=== PATIENT | male | born 1960 | race Caucasian/White ===

== ENCOUNTER 2018-04-17 10:12 | Inpatient (IN) | payer OTHER ==
[2018-04-13 08:49] VITALS: BMI 23.6
[2018-04-17] MEDS ORDERED: HEPARIN NA (PORCINE) 5,000 UNITS/ML 1ML VIAL ONE (12:23)
[2018-04-17] MEDS ORDERED: THROMBIN (BOVINE) 5,000 UNIT VIAL TP ONE ×4 (12:24→16:17)
[2018-04-17] MEDS ORDERED: BUPIVACAINE LIPOSOME/PF (EXPAREL) 266 MG/20 ML VIAL NR ONE ×3 (12:45→17:20)
[2018-04-17] MEDS ORDERED: MIDAZOLAM HCL 2 MG/2 ML SINGLE DOSE VIAL ONE (12:50)
[2018-04-17] MEDS ORDERED: PROPOFOL 20 ML ONE ×14 (12:51→17:55)
[2018-04-17] MEDS ORDERED: LIDOCAINE HCL/PF 2% SDV 5ML VIAL ONE ×2 (13:13→18:04)
[2018-04-17] MEDS ORDERED: fentaNYL CITRATE 250 MCG/5 ML VIAL ONE ×2 (13:13→14:00)
[2018-04-17] MEDS ORDERED: ROCURONIUM BROMIDE 50 MG/5 ML VIAL ONE (13:14)
[2018-04-17] MEDS ORDERED: ceFAZolin SODIUM 1 GM VIAL ONE ×2 (13:30→17:09)
[2018-04-17] MEDS ORDERED: DEXAMETHASONE SOD PHOSPHATE 4 MG/1 ML VIAL ONE (13:32)
[2018-04-17] MEDS ORDERED: TRANEXAMIC ACID 1000 MG/10 ML VIAL ONE (13:36)
[2018-04-17] MEDS ORDERED: ceFAZolin 2 GRAM PREMIX BAG IVPB ONE (13:38)
[2018-04-17] MEDS ORDERED: BUPIVACAINE HCL/PF 0.25% (2.5MG/ML) 10 ML VIAL IJ ONE (14:36)
[2018-04-17] MEDS ORDERED: METOPROLOL TARTRATE 5 MG/5 ML VIAL ONE (14:43)
--- NOTE | 2018-04-17 17:23 | PN ---
Progress Note (short form) - Note Progress Note: 57M s/p KHADRA; revision laminectomy L3-L4; laminectomy L4, L5, S1; L4-L5, L5-S1 PLIF; partial corpectomies L5, S1; SPO L3-L4; L3-S1 PISF POD #0. -Admit to ICU post-op. -Pain control: per anaesthesia team; No NSAID's. -DVT PPx: - Mechanical only: BIANKA's, SCD's. -Incentive spirometry. -PT/OT/Rehab, OOB. -WBAT B/L LE. -q4h B/L LE NV checks. -Post-op antibiotics x 2 doses. -NPO until flatus. -f/u AM labs. -f/u drain output. -d/c Geronimo catheter when ambulating. -Care per ICU & medical hospitalist team. -Discharge planning: f[facility]; call for appointment; . -Will follow. Clovis Pickering MD (Orthopaedic Surgery).
--- NOTE | 2018-04-17 17:25 | OP ---
Operative Note - Note: Operative Date: 04/17/18 Pre-Operative Diagnosis: Lumbar spinal stenosis. Adjacent level disease Operation: 1. KHADRA. 2. Revision laminectomy L3-L4. 3. Laminectomy L4, L5, S1. 4. L4-L5, L5-S1 PLIF. 5. L5, S1 partial corpectomies. 6. L3-L4 SPO. 7. L3-S1 PISF. 8. Bone marrow aspiration. 9. Bone autograft. 10. Bone allograft Post-Operative Diagnosis: Same as Pre-op Surgeon: Clovis Pickering Sock Lining Examiner: Polo Pickering Anesthesiologist/SIGNAL OPERATOR TECHNICAL: Nick Johnston Anesthesia: General Specimens Removed: Hardware. L4-L5, L5-S1 disc Estimated Blood Loss (mls): 900 Drains & Tubes with Location: 1 x superficial HemoVac Blood Volume Replaced (mls): 375 (Cell Saver) Fluid Volume Replaced (mls): 3,400 (Crystalloid) Operative Report Dictated: Yes
[2018-04-17] MEDS ORDERED: BENZOIN TINCTURE SWABSTICK TP ONE (18:45)
[2018-04-17] MEDS ORDERED: ONDANSETRON 4 MG/2 ML VIAL IVPUSH PRN ×2 (19:14→21:50)
[2018-04-17] MEDS ORDERED: ACETAMINOPHEN 1000 MG/100 ML VIAL (NON FORMULARY) IVPB ONE (19:14)
[2018-04-17] MEDS ORDERED: LACTATED RINGERS SOLUTION 1,000 ML IV SCH (19:15)
--- NOTE | 2018-04-17 21:09 | HP ---
CHIEF COMPLAINT: s/p laminectomies PCP: HISTORY OF PRESENT ILLNESS: Patient is a 57 y/ male with a history of HLD, back surgery 9 years ago, and cardiac stent 5 years ago who presents POD 0 for removal of hardware and revision laminectomy L3-L4, laminectomies L3, L4, L5, partial corpectomies L5, S1, and L4-S1 PLISF. Patient reports he did not have any specific trauma that caused his back problems. He needed revision after his first surgery for L3-L4, and that was part of this current surgery. He has been mobile and able to deal with the pain up until about a year ago when he became less active. He reports he has had numbness, tingling, and pins and needles down his right leg. He did not have any weakness in his leg. Patient's only current complaint is that he needs to urinate, despite having catheter he feels he cannot go. He reports that he had some trouble urinating after his last surgery. After removal of his last catheter he had to have another one placed. He denies any current back pain , chest pain, headache, nausea, or shortness of breath. ER course was notable for: (1) QTC: 414 (2) (3) Recent Travel: PAST MEDICAL HISTORY: HLD PAST SURGICAL HISTORY: back surgery 9 years ago, stent placement 5 year ago, clavicle fx at age 11, tonsillectomy Social History: Smoking: denies Alcohol: Drugs: Family History: Allergies Sulfa (Sulfonamide Antibiotics) Allergy (Verified 04/14/18 12:54) "hives,rash" HOME MEDICATIONS: Home Medications Medication Instructions Recorded Aspirin [ASA -] 325 mg PO DAILY 04/13/18 Atorvastatin Ca [Lipitor] 20 mg PO HS 04/13/18 [place]-3 Fatty Acids/Fish Oil [Fish 1 each PO DAILY 04/13/18 Oil 1,000 mg Capsule] clonazePAM [Klonopin -] 0.25 mg PO PRN PRN 04/13/18 Multivitamin/Iron/Folic Acid 1 each PO DAILY 04/17/18 [Centrum Adults Tablet] REVIEW OF SYSTEMS CONSTITUTIONAL: Absent: fever, chills, diaphoresis, generalized weakness, malaise, loss of appetite, weight change HEENT: Absent: rhinorrhea, nasal congestion, throat pain, throat swelling, difficulty swallowing, mouth swelling, ear pain, eye pain, visual changes CARDIOVASCULAR: Absent: chest pain, syncope, palpitations, irregular heart rate, lightheadedness , peripheral edema RESPIRATORY: Absent: cough, shortness of breath, dyspnea with exertion, orthopnea, wheezing, stridor, hemoptysis GASTROINTESTINAL: Absent: abdominal pain, abdominal distension, nausea, vomiting, diarrhea, constipation, melena, hematochezia GENITOURINARY: hesitancy Absent: dysuria, frequency, urgency, hematuria, flank pain, genital pain MUSCULOSKELETAL: Absent: myalgia, arthralgia, joint swelling, back pain, neck pain SKIN: Absent: rash, itching, pallor HEMATOLOGIC/IMMUNOLOGIC: Absent: easy bleeding, easy bruising, lymphadenopathy, frequent infections ENDOCRINE: Absent: unexplained weight gain, unexplained weight loss, heat intolerance, cold intolerance NEUROLOGIC: Absent: headache, focal weakness or paresthesias, dizziness, unsteady gait, seizure, mental status changes, bladder or bowel incontinence PSYCHIATRIC: Absent: anxiety, depression, suicidal or homicidal ideation, hallucinations. PHYSICAL EXAMINATION Vital Signs - 24 hr Vital Signs Temperature 98.3 F 04/17/18 19:02 Pulse Rate 66 04/17/18 20:15 Respiratory Rate 20 04/17/18 20:15 Blood Pressure 98/63 04/17/18 20:15 O2 Sat by Pulse Oximetry (%) 100 04/17/18 20:15 GENERAL: Awake, alert, and fully oriented, in no acute distress. HEAD: Normal with no signs of trauma. EYES: Pupils equal, round and reactive to light, extraocular movements intact EARS, NOSE, THROAT: . Moist mucous membranes. LUNGS: Breath sounds equal, clear to auscultation bilaterally. No wheezes, and no crackles. HEART: Regular rate and rhythm, normal S1 and S2 without murmur, rub or gallop. ABDOMEN: Soft, nontender, not distended, normoactive bowel sounds, no guarding, no rebound. no bladder distension MUSCULOSKELETAL: dressing over lower lumbar spine up to lower thoracic spine UPPER EXTREMITIES: 2+ pulses, warm, well-perfused. muscle strength 5/5, sensation intact bilaterally LOWER EXTREMITIES: 2+ pulses, warm, well-perfused. diminished soft tough sensation on RLE, deep sensation intact, LLE sensation intact, muscle strength deffere PSYCHIATRIC: Cooperative. Good eye contact. Appropriate mood and affect. SKIN: Warm, dry, normal turgor, no rashes or lesions noted, Laboratory Results - last 24 hr 04/17/18 10:25 Blood Type O POSITIVE Antibody Screen Negative ASSESSMENT/PLAN: Patient is a 57 y/ male with a history of HLD, back surgery 9 years ago, and cardiac stent 5 years ago who presents POD 0 for laminectomies L3, L4, L5, and S1 and L4-S1 PLISF. #POD 0 laminectomies L3, L4, L5, and S1 and L4-S1 PLISF - Oxycodone 10 mg BID - Oxycodone 5mg for pain 3-6, 10 mg for pain 6-10 prn q3h - pain well controlled - encourage incentive spirometer use - monitor urine output, currently draining non hematuric urine - neuro checks q shift - f/u Dr. Pickering - f/u physical therapy - NPO #Cardiac HX - hold aspirin 325 mg for now, restart per ortho - Atorvastatin 20 mg daily - hold metoprolol until dose confirmed - QTC 414 #Anxiety - Clonazepam .25 mg prn Dispo: med rec, f/u per Dr. Pickering Visit type - Emergency Visit Emergency Visit: No - New Patient This patient is new to me today: Yes Date on this admission: 04/18/18 - Critical Care Critical Care patient: No
[2018-04-17] MEDS: LACTATED RINGERS SOLUTION 1,000 ML IV SCH (22:00)
[2018-04-17] MEDS ORDERED: LIDOCAINE HCL 5% TOP OINTMENT 50 GM TUBE TP ONE (23:31)
[2018-04-17] MEDS: clonazePAM 0.5 MG TABLET PO PRN (23:34)
[2018-04-17] MEDS: CHLORHEXIDINE GLUCONATE 4% CLEANSER FOR DECOLONIZATION TP SCH (23:36)
[2018-04-17] MEDS: MUPIROCIN 2% TOPICAL OINTMENT FOR DECOLONIZATION NS SCH (23:37)
--- NOTE | 2018-04-17 23:54 | PN ---
Teaching Attending Note Name of Resident: Kathy Hairston ATTENDING PHYSICIAN STATEMENT I saw and evaluated the patient. I reviewed the resident's note and discussed the case with the resident. I agree with the resident's findings and plan as documented. SUBJECTIVE: Patient is a 57 y/o CM with a PMH of CAD s/p PCI, HLD, chronic back pain s/p sgy ~9 years ago, presents to the IM service as a consultation from Dr. santos for post operative management. He is doing well and is hemodynamically stable and afebrile with no new complaints. He is on PRN oxycodone and his pain is well managed with this. Has not yet had a BM or flatus. Continues to have intermittent numbness and tingling in his R leg but can feel my touch; not rapidly progressing or associated with new weakness. He has some leg weakness associated with pain postoperatively but it is not rapidly changing and he does appear stable from a neurovasc. standpoint. He had the surgery done due to the progressive nature of his back pain. He is POD #0 for removal of hardware and revision laminectomy L3-L4, laminectomies L3, L4, L5, partial corpectomies L5, S1, and L4-S1 PLISF. There are still some discrepansies with the doses of his medication. Unclear why he is written as being on high dose ASA. He notes as I am leaving the room that he feels like his bladder is not emptying; caldwell in, though, and draining clear yellow urine. PMH: HLD, CAD, Chronic back pain PSH: PCI, old back procedure ~9 years ago FH: asked and noncontributory Social: No EtOH or drug abuse reported OBJECTIVE: VSS, labs pending Resting in bed, no distress, conversational and pleasant RRR s1/2 no mgr NT ND +BS no HSM Lungs CTAB with sym exp CN 2-12 grossly intact, moves all 4 extremities, 3-4/5 LE weakness especially pronounced at hip joint with all sensation in tact but somewhat diminished in the lateral right thigh. Normal affect, appropriate behavior ASSESSMENT AND PLAN: 1) Postoperative management -Resume asa per ortho; not clear on why documented as 325; if no compelling reason for high dose would resume at 81mg -Mobilization with PT/OT -Neurovascular checks -DVT px per ortho -Pain control and bowel reg 2) H/O CAD in [place] artery -Elucidate doses of ASA (resume when appropriate with primary service) and BB ( can start when we have the dose). Is also on statin. No recent stents so doesn 't need Plavix. 3) HLD -Continue statin 4) Chronic Back Pain -Continue with postoperative pain management; elucidate home requirements as he starts mobilization DVT px reviewed No GI px indicated Full Code
--- NOTE | 2018-04-18 00:33 | CONSULT ---
Consultation: REQUESTING PROVIDER: Dr. Pickering CONSULT REQUEST: We have been asked to medically evaluate this patient for s/p laminectomy. HISTORY OF PRESENT ILLNESS: Patient is a 57 year old male with a PMHx of CAD s/p stent placement, HLD, chronic back pain who presented to ICU for post operative management s/p removal of hardware and revision laminectomy L3-L4, laminectomies L3, L4, L5, partial corpectomies L5, S1, and L4-S1 PLISF. Patient reports having his first laminectomy 9 years ago due to the back pain. However, over the last few years patient reports having continuous back pain that became debilitating in the last year. Patient states he became less active and started having numbness, weakness, and tingling of his legs, which prompted the surgery. Patient currently afebrile and hemodynamically stable. Continues to report right leg numbness after the surgery but pain is controlled with PRN oxycodone. Denies having any bowel movements or flatus. Patient does however report discomfort around the caldwell site and that he is unable to urinate. However, caldwell placed and patient is draining clear yellow urine. Otherwise, patient denies any fever, chills, nausea, vomiting, abdominal pain, chest pain, palpitations, shortness of breath, acute vision changes, headaches. PMHx: CAD s/p Stent, HLD, chronic back pain PSHx: Laminectomy (9 years ago), Stent placement (2012), clavicle fx at age 11, tonsillectomy Social: Denies alcohol, drugs, smoking Family: Denies Allergies: Sulfa (Sulfonamide Antibiotics) Allergy (Verified 04/14/18 12:54) "hives,rash" REVIEW OF SYSTEMS: CONSTITUTIONAL: Absent: fever, chills, diaphoresis, generalized weakness, malaise, loss of appetite, weight change HEENT: Absent: rhinorrhea, nasal congestion, throat pain, throat swelling, difficulty swallowing, mouth swelling, ear pain, eye pain, visual changes CARDIOVASCULAR: Absent: chest pain, syncope, palpitations, irregular heart rate, lightheadedness , peripheral edema RESPIRATORY: Absent: cough, shortness of breath, dyspnea with exertion, orthopnea, wheezing, stridor, hemoptysis GASTROINTESTINAL: Absent: abdominal pain, abdominal distension, nausea, vomiting, diarrhea, constipation, melena, hematochezia GENITOURINARY: Absent: dysuria, frequency, urgency, hesitancy, hematuria, flank pain, genital pain MUSCULOSKELETAL: Absent: myalgia, arthralgia, joint swelling, back pain, neck pain SKIN: Absent: rash, itching, pallor HEMATOLOGIC/IMMUNOLOGIC: Absent: easy bleeding, easy bruising, lymphadenopathy, frequent infections ENDOCRINE: Absent: unexplained weight gain, unexplained weight loss, heat intolerance, cold intolerance NEUROLOGIC: focal weakness or paresthesias Absent: headache, dizziness, unsteady gait, seizure, mental status changes, bladder or bowel incontinence PSYCHIATRIC: Absent: anxiety, depression, suicidal or homicidal ideation, hallucinations. PHYSICAL EXAMINATION Vital Signs - 24 hr 04/17/18 04/17/18 04/17/18 10:35 19:02 19:15 Temperature 97.9 F 98.3 F Pulse Rate 57 L 59 L 60 Respiratory 16 12 10 Rate Blood Pressure 107/68 98/58 L 92/53 L O2 Sat by Pulse 96 100 100 Oximetry (%) 04/17/18 04/17/18 04/17/18 19:30 19:45 20:00 Temperature Pulse Rate 67 61 66 Respiratory 15 13 18 Rate Blood Pressure 98/50 L 95/54 L 96/65 O2 Sat by Pulse 100 100 100 Oximetry (%) 04/17/18 04/17/18 04/17/18 20:15 20:30 20:45 Temperature Pulse Rate 66 66 63 Respiratory 20 17 17 Rate Blood Pressure 98/63 115/60 96/69 O2 Sat by Pulse 100 100 100 Oximetry (%) 04/17/18 04/17/18 04/17/18 21:00 21:15 21:30 Temperature Pulse Rate 60 60 62 Respiratory 18 15 10 Rate Blood Pressure 98/58 L 111/56 L 110/52 L O2 Sat by Pulse 100 100 100 Oximetry (%) 04/17/18 04/17/18 21:45 22:00 Temperature 98.1 F Pulse Rate 64 60 Respiratory 10 16 Rate Blood Pressure 111/58 L 110/50 L O2 Sat by Pulse 100 Oximetry (%) GENERAL: Awake, alert, and fully oriented, in no acute distress. HEAD: Normal with no signs of trauma. EYES: Pupils equal, round and reactive to light, extraocular movements intact, sclera anicteric, conjunctiva clear. No lid lag. EARS, NOSE, THROAT: Oropharynx clear without exudates. Moist mucous membranes. NECK: Normal range of motion, supple without lymphadenopathy, JVD, or masses. LUNGS: Breath sounds equal, clear to auscultation bilaterally. No wheezes, and no crackles. No accessory muscle use. HEART: Regular rate and rhythm, normal S1 and S2 without murmur, rub or gallop. ABDOMEN: Soft, nontender, not distended, normoactive bowel sounds, no guarding, no rebound, no masses. No hepatomegaly or splenomegaly. : Caldwell placed draining clear yellow urine MUSCULOSKELETAL: No CVA tenderness. UPPER EXTREMITIES: 2+ pulses, warm, well-perfused. No cyanosis. No clubbing. Cap refill <2 seconds. No peripheral edema. LOWER EXTREMITIES: SCD's in bilateral legs. 2+ pulses, warm, well-perfused. No calf tenderness. No peripheral edema. NEUROLOGICAL: Cranial nerves II-XII intact. Normal speech. Motor strength 3-4/ 5 bilaterally with sensation intact. PSYCHIATRIC: Cooperative. Good eye contact. Appropriate mood and affect. SKIN: Warm, dry, normal turgor, no rashes or lesions noted. Laboratory Results - last 24 hr 04/17/18 10:25 Blood Type O POSITIVE Antibody Screen Negative Active Medications Generic Name Dose Route Start Last Admin Trade Name Freq PRN Reason Stop Dose Admin Acetaminophen 1,000 mg 04/18/18 03:30 Ofirmev Injection - IVPB 04/18/18 19:31 Q8H [facility] Atorvastatin Calcium 20 mg 04/18/18 22:00 Lipitor - PO HS LOTTIE Cefazolin Sodium/Dextrose 2 gm 04/18/18 01:30 Ancef 2 Gm Premixed Ivpb - IVPB 04/18/18 09:31 Q8H [facility] Chlorhexidine Gluconate 1 applic 04/17/18 22:00 04/17/18 23:36 Hibiclens For Decolonization - TP 1 applic HS LOTTIE Administration Clonazepam 0.25 mg 04/17/18 22:02 04/17/18 23:34 Klonopin - PO 0.25 mg DAILY PRN Administration ANXIETY Lactated Ringer's 1,000 mls @ 100 mls/hr 04/17/18 22:00 04/17/18 22:00 Lactated Ringers Solution IV 0 mls ASDIR LOTTIE Administration Mupirocin 1 applic 04/17/18 22:00 04/17/18 23:37 Bactroban Ointment (For Decolonization) - NS 04/22/18 21:59 1 applic BID LOTTIE Administration Ondansetron HCl 4 mg 04/17/18 21:50 Zofran Injection IVPUSH Q6H PRN NAUSEA AND/OR VOMITING Oxycodone HCl 5 mg 04/17/18 19:14 Roxicodone - PO Q3H PRN PAIN LEVEL 1-5 Oxycodone HCl 10 mg 04/17/18 19:14 Roxicodone - PO Q3H PRN PAIN LEVEL 6-10 Oxycodone HCl 10 mg 04/18/18 10:00 Oxycontin - PO 04/20/18 19:15 BID LOTTIE ASSESSMENT/PLAN: Patient is a 57 year old male who presented for Post operative management s/p laminectomies L3, L4, L5, and S1 and L4-S1 PLISF. Patient admitted to ICU for further monitoring and management. Neurology #S/P Laminectomies L3, L4, L5, and S1 and L4-S1 PLISF -POD #0 -Continue pain management with Oxycodone 10mg BID with Oxycodone 5mg PRN Q3H -Will need bowel regimen due to pain medications -Continue IV tylenol for pain -Continue IV fluids with LR @100mls/hr -Continue to monitor Urine ouput -Continue Incentive spirometer -Neurochecks qshift -PT ordered -Continue NPO -Continue DVT prophylaxis Cardiology #CAD s/p Stent -Hold ASA 325mg, as per ortho -Continue home medication Metoprolol once primary team confirms dosage #HLD -Continue home medication Atorvastatin 20mg HS Psychology #Anxiety -Continue Clonazepam 0.25mg PRN F/E/N -IV LR @100mls/hr -labs ordered -NPO Prophylaxis -High risk. SCD's for DVT -No GI indicated Disposition -Full code -Continue post op management in ICU We will continue to follow the patient. Thank you for this consultative opportunity. Joceline Martinez [id number] Visit type - Emergency Visit Emergency Visit: Yes ED Registration Date: 04/17/18 Care time: The patient presented to the Emergency Department on the above date and was hospitalized for further evaluation of their emergent condition. - New Patient This patient is new to me today: Yes Date on this admission: 04/17/18 - Critical Care Critical Care patient: Yes Total Critical Care Time (in minutes): 45 Critical Care Statement: The care of this patient involved high complexity decision making to prevent further life threatening deterioration of the patient 's condition and/or to evaluate & treat vital organ system(s) failure or risk of failure.
[2018-04-18] MEDS: ceFAZolin 2 GRAM PREMIX BAG IVPB SCH ×2 (02:09→09:39)
[2018-04-18] MEDS: ACETAMINOPHEN 1000 MG/100 ML VIAL (NON FORMULARY) IVPB SCH ×3 (02:36→19:01)
[2018-04-18] MEDS: oxyCODONE HCL 5 MG TABLET PO PRN ×4 (05:50→23:10)
[2018-04-18 06:40] LABS: BASO % 0.1 % (0-2.0); EOS % 0.1 % (0-4.5); HEMATOCRIT 36.6 % (35.4-49); HEMOGLOBIN 12.3 GM/dL (11.7-16.9); LYMPH % 8.5 % (8-40); MCH 30.2 pg (25.7-33.7); MCHC 33.7 g/dl (32.0-35.9); MEAN CELL VOLUME 89.7 fl (80-96); MEAN PLT VOLUME 8.5 fl (7.5-11.1); MONO % 8.7 % (3.8-10.2); NEUT % 82.6 % (42.8-82.8); PLATELET COUNT 177 K/MM3 (134-434); RBC 4.08 M/mm3 (4.00-5.60); RDW 13.2 % (11.9-15.9); WHITE BLOOD COUNT 14.6 K/mm3 (4.0-10.0)
[2018-04-18 07:01] LABS: ANION GAP 6 MMOL/L (8-16); BLOOD UREA NITROGEN 15 mg/dL (7-18); CALCIUM 7.9 mg/dL (8.5-10.1); CHLORIDE 104 mmol/L (98-107); CO2 30 mmol/L (21-32); CREATININE 0.8 mg/dL (0.55-1.3); GLUCOSE,RANDOM 100 mg/dL (74-106); PHOSPHOROUS 4.4 mg/dL (2.5-4.9); POTASSIUM 4.1 mmol/L (3.5-5.1); SODIUM 140 mmol/L (136-145)
--- NOTE | 2018-04-18 07:14 | OP ---
DATE OF OPERATION: DATE OF DICTATION: 04/17/2018 SURGEON: Clovis Pickering MD SNOW REMOVING SUPERVISOR: Polo Pickering MD PREOPERATIVE DIAGNOSIS: Spinal stenosis, L3-4, 4-5, 5-1, with associated segmental instability and kyphosis secondary to disk prolapse disease and facet arthropathy. POSTOPERATIVE DIAGNOSIS: Spinal stenosis, L3-4, 4-5, 5-1, with associated segmental instability and kyphosis secondary to disk prolapse disease and facet arthropathy. OPERATION PERFORMED: 1. Removal of hardware. 2. Inspection of fusion mass. 3. Laminectomy, L4-5, and revision laminectomy, L3. 4. Partial corpectomy, L5. 5. Partial corpectomy, S1. 6. Justin-Irvin osteotomy, L3-4. 7. Posterior lumbar interbody fusion, L4-5, L5-S1, with cages at L4-5 and L5-S1. 8. Pedicle instrumentation, L3-4, 5-S1. 9. Posterolateral arthrodesis, L3-4, 5-S1. 10. Bone marrow aspirate concentrate and autologous allograft bone grafting. 11. Use of biplane fluoroscopy and intraoperative neuromonitoring. ANESTHESIA: General. ANTIBIOTICS GIVEN: Kefzol 2 g, 1 g of vancomycin, 1 g of Kefzol given at the end of the procedure. BLOOD LOSS: Approximately 900 mL; 350 mL cell saver given back to the patient. OPERATION DETAILS: Patient correctly identified, placed prone on a Robbie table. Lumbar spine was prepped and draped in the routine manner with Betadine scrub solution, wiped with alcohol, DuraPrep applied. A window drape applied. Midline incision extended to the lumbosacral region. A subperiosteal dissection was taken from the skin through the subcutaneous tissues to the tip of the spinous processes exposing the spinous process and lamina out to the tips of the transverse process left- and right-hand side including the ala and the sacrum all visualized clearly. Packed with sponges into the interspace for hemostasis. The tip was oozy throughout the procedure. Using Leksell rongeurs, Kerrison up-cuts, osteotomes, the laminae of L4 and 5 were resected. This proved difficult because even though the surgery had been at L3-4 in the past there was significant scarring distally requiring a lot of attention to detail in dealing with the dura and the dura remained intact throughout the procedure. An extensive laminectomy from L3, 4, 5, S1 performed, that is revision laminectomy, L3, new laminectomies at 4 and new laminectomies at 5 performed with superior undercutting facetectomies being performed as well. The disk at L5-S1 was found to be calcified, heaped up high expanding into the thecal sac. We attacked the disk from both the left- and right-hand side, retracting the theca appropriately using Leksell rongeurs, osteotomes. A partial corpectomy was necessary both on the left- and right-hand side in order to get into the disk to open it up and see the cage appropriately and open the disk space after the foramen was opened. The nerve roots of L5-S1 were stuck adherent and freed completely on both the left- and right-hand side. The L4-5 disk was less problematic and a routine posterior lumbar interbody fusion performed as followed. Annulotomy performed transverse into the disk. The disk material was resected, curetted as well as jean claude inserted and a size 13 x 23-mm, 40 length cage inserted. The cage was inserted into the space emptied of all disk material. Healthy endplate bleeding bone noted and the interspace itself was packed with autologous bone harvested from the posterior elements and milled in a [employer] mill to pack it into the interspace as well in the cage holding the disk space open. The L5-S1 proved more difficult. This necessitated shaving to size 8 and we could not get beyond this for fear of breaking the endplates and a size 8, 40 length cage inserted. Also the entire disk was emptied and packed with autologous bone as well. This completed the 2 posterior lumbar interbody fusions. In order to get into the L5-S1 disk bone from the posterior vertebral bodies had to be resected. We used osteotomes to do this with the theca well protected and retracted to gain entry. All this was done on L5 as well as on S1. Thus, partial corpectomies of L5-S1 were performed both left- and right-hand side. This facilitate the entry into the disk and was essential. Once this had been performed the pedicles of L3, 4, 5, S1 were identified. We used a drill as well as a lateral fluoroscopic x-ray to guide the screws under the endplates. The screws were tested and were safe well above all neural parameter danger evaluating points, that is well above 60 mA for each screw. The rods were contoured, fixed in screw heads and tightened with appropriate caps and 1 crosslink applied. Bone grafting into the intertransverse plane was performed with first aspirating 120 mL of marrow from the left posterior ilium. This was then mixed with demineralized cancellous bone combined with autologous bone and expanded with allograft bone into the intertransverse plane richly providing bone graft both into the interbody space at L4-5 and L5-S1 but also into the L3-4, 5-S1 level. The wounds were thoroughly lavaged throughout the procedure. The retractors were released every half hour to allow blood supply to the muscle to be reinstated. The dura remained intact. A concoction of Duramorph and fentanyl was placed with a 27-mm syringe into the theca. There was a slight leak at the theca. This was covered with a muscle patch as well as stem cell BMAC (bone marrow aspirate concentrate) material and it was stuck on to this area with no more leakage noted. The wounds were closed as follows. Muscle 1 Vicryl, fascia 1 Vicryl, subcutaneous 1 and 2-0 Vicryl, skin 3-0 Monocryl and Steri-Strips. Drainage 1/8-inch Hemovac subcutaneously performed. No complications. Operation was extremely difficult because of hard overgrown bone, revisions, adherent dura and took much, double the time that was normal for an operation of this dimension and no other issues. Patient will be nursed in the ICU. MD DORINDA Camacho/[id number]
[2018-04-18] MEDS: oxyCODONE HCL 10 MG SUSTAINED ACTING TABLET PO SCH ×2 (09:37→22:02)
[2018-04-18] MEDS: MUPIROCIN 2% TOPICAL OINTMENT FOR DECOLONIZATION NS SCH ×2 (09:39→22:04)
[2018-04-18] MEDS: LACTATED RINGERS SOLUTION 1,000 ML IV SCH (09:40)
[2018-04-18] MEDS: clonazePAM 0.5 MG TABLET PO PRN (11:38)
--- NOTE | 2018-04-18 13:25 | PN ---
Progress Note (short form) - Note Progress Note: Anesthesia postop note 57 y/o M s/p GA for spinal fusion POD#1, vss, aaox3, pain fairly well controlled, pain management as per surgical team. No anesthesia complications.
--- NOTE | 2018-04-18 14:21 | PN ---
Teaching Attending Note Name of Resident: Clovis Barron ATTENDING PHYSICIAN STATEMENT I saw and evaluated the patient. I reviewed the resident's note and discussed the case with the resident. I agree with the resident's findings and plan as documented with exceptions below. SUBJECTIVE: Patient seen and examined, back pain but controlled with medications, Feeling wants to void. Still not passing gas or BM yet but no abdominal pain or discomfort. OBJECTIVE: Vital Signs Period Temp Pulse Resp BP Sys/Reyez Pulse Ox Last 24 Hr 97.5 F-99.5 F 59-81 04-17 92-138/50-83 99-100 Intake & Output 04/15/18 04/16/18 04/17/18 04/18/18 23:59 23:59 23:59 23:59 Intake Total 4225 1050 Output Total 2125 2620 Balance 2100 -1570 General: lying in bed in no acute distress Chest: Decreased effort, positive air entry, no rales or wheezing Abdomen:soft hypoactive bowel sounds, ND, NT, no voluntary or involuntary guarding or rigidity Extremities: no edema Musculoskeletal: spinal dressing clean, drain with sanguinous discharge, no active surrounding dressing/erythema around the dressing Home Medications Medication Instructions Recorded Aspirin [ASA -] 325 mg PO DAILY 04/13/18 Atorvastatin Ca [Lipitor] 20 mg PO HS 04/13/18 [place]-3 Fatty Acids/Fish Oil [Fish 1 each PO DAILY 04/13/18 Oil 1,000 mg Capsule] clonazePAM [Klonopin -] 0.25 mg PO PRN PRN 04/13/18 Multivitamin/Iron/Folic Acid 1 each PO DAILY 04/17/18 [Centrum Adults Tablet] Active Medications Acetaminophen (Ofirmev Injection -) 1,000 mg IVPB Q8H [facility] Stop: 04/18/18 19:31 Last Admin: 04/18/18 11:25 Dose: 1,000 mg Atorvastatin Calcium (Lipitor -) 20 mg PO HS [facility] Chlorhexidine Gluconate (Hibiclens For Decolonization -) 1 applic TP HS [facility] Last Admin: 04/17/18 23:36 Dose: 1 applic Clonazepam (Klonopin -) 0.25 mg PO DAILY PRN PRN Reason: ANXIETY Last Admin: 04/18/18 11:38 Dose: 0.25 mg Docusate Sodium (Colace -) 100 mg PO TID [facility] Lactated Ringer's (Lactated Ringers Solution) 1,000 mls @ 100 mls/hr IV ASDIR [facility] Last Admin: 04/18/18 09:40 Dose: 100 mls/hr Mupirocin (Bactroban Ointment (For Decolonization) -) 1 applic NS BID [facility] Stop: 04/22/18 21:59 Last Admin: 04/18/18 09:39 Dose: 1 applic Ondansetron HCl (Zofran Injection) 4 mg IVPUSH Q6H PRN PRN Reason: NAUSEA AND/OR VOMITING Oxycodone HCl (Roxicodone -) 5 mg PO Q3H PRN PRN Reason: PAIN LEVEL 1-5 Oxycodone HCl (Roxicodone -) 10 mg PO Q3H PRN PRN Reason: PAIN LEVEL 6-10 Last Admin: 04/18/18 05:50 Dose: 10 mg Oxycodone HCl (Oxycontin -) 10 mg PO BID [facility] Stop: 04/20/18 19:15 Last Admin: 04/18/18 09:37 Dose: 10 mg Laboratory Results - last 24 hr 04/18/18 04/18/18 04/18/18 05:30 05:30 05:30 WBC 14.6 H RBC 4.08 Hgb 12.3 Hct 36.6 MCV 89.7 MCH 30.2 MCHC 33.7 RDW 13.2 Plt Count 177 MPV 8.5 Absolute Neuts (auto) 12.1 H Neutrophils % 82.6 Lymphocytes % 8.5 Monocytes % 8.7 Eosinophils % 0.1 Basophils % 0.1 Nucleated RBC % 0 Sodium 140 Potassium 4.1 Chloride 104 Carbon Dioxide 30 Anion Gap 6 L BUN 15 Creatinine 0.8 Creat Clearance w eGFR > 60 Random Glucose 100 Calcium 7.9 L Phosphorus 4.4 Magnesium 2.0 Blood Type O POSITIVE ASSESSMENT AND PLAN: 57 yom with PMHX of HLD, CAD s/p PCI, admitted for elective lumbar spinal surgery. -Lumbar spinal stenosis s/p KHADRA/Revision laminectomy L3-L4/Laminectomy L4, L5, S1/L4-L5, L5-S1 PLIF/L5, S1 partial corpectomies/L3-L4 SPO/L3-S1 PISF/ Bone marrow aspiration/Bone autograft/Bone allograft -HLD -CAD s/p ?PCI Plan: Pain control with oxycodone/tylenol. No flatus or BM yet NPO for now. Change IVF to D5-NS. Geronimo removed. Bladder scan q6h, re-insert if retention. PT eval, OOB Bowel regimen. DVTPPX/dispo per spinal surgery Plan discussed with patient in detail, all questions answered. Plan co-ordinated with ICU team. Total critical care time spent in ICU 25 min.
--- NOTE | 2018-04-18 14:42 | PN ---
Physical Exam: SUBJECTIVE: Patient seen and examined at bedside. caldwell replaced and drained 500cc, pt feeling better. pain improved w/ meds. OBJECTIVE: Vital Signs Period Temp Pulse Resp BP Sys/Reyez Pulse Ox Last 24 Hr 97.5 F-99.5 F 59-81 10-22 92-138/50-83 99-100 GENERAL: Awake, alert, and fully oriented, in no acute distress. HEAD: NCAT EYES: PERRLA, extraocular movements intact, sclera anicteric, conjunctiva clear. No lid lag. EARS, NOSE, THROAT: Oropharynx clear without exudates. MMM NECK: Normal range of motion, supple without lymphadenopathy, JVD, or masses. LUNGS: CTAB No wheezes, and no crackles. No accessory muscle use. HEART: RRR, normal S1 and S2 without murmur, rub or gallop. ABDOMEN: Soft, NTND, normoactive bowel sounds, no guarding, no rebound, no masses. : Caldwell placed draining clear yellow urine MUSCULOSKELETAL: No CVA tenderness. 10-20cc serosanguinous fluid draining from back UPPER EXTREMITIES: 2+ pulses, warm, well-perfused. No cyanosis. No clubbing. Cap refill <2 seconds. No peripheral edema. LOWER EXTREMITIES: SCD's in bilateral legs. 2+ pulses, warm, well-perfused. No calf tenderness. No peripheral edema. NEUROLOGICAL: Cranial nerves II-XII intact. Normal speech. Motor strength 3-4/ 5 bilaterally with sensation intact. PSYCHIATRIC: Cooperative. Good eye contact. Appropriate mood and affect. SKIN: Warm, dry, normal turgor, no rashes or lesions noted. Laboratory Results - last 24 hr 04/18/18 04/18/18 04/18/18 05:30 05:30 05:30 WBC 14.6 H RBC 4.08 Hgb 12.3 Hct 36.6 MCV 89.7 MCH 30.2 MCHC 33.7 RDW 13.2 Plt Count 177 MPV 8.5 Absolute Neuts (auto) 12.1 H Neutrophils % 82.6 Lymphocytes % 8.5 Monocytes % 8.7 Eosinophils % 0.1 Basophils % 0.1 Nucleated RBC % 0 Sodium 140 Potassium 4.1 Chloride 104 Carbon Dioxide 30 Anion Gap 6 L BUN 15 Creatinine 0.8 Creat Clearance w eGFR > 60 Random Glucose 100 Calcium 7.9 L Phosphorus 4.4 Magnesium 2.0 Blood Type O POSITIVE Active Medications Generic Name Dose Route Start Last Admin Trade Name Freq PRN Reason Stop Dose Admin Acetaminophen 1,000 mg 04/18/18 03:30 04/18/18 11:25 Ofirmev Injection - IVPB 04/18/18 19:31 1,000 mg Q8H [facility] Administration Atorvastatin Calcium 20 mg 04/18/18 22:00 Lipitor - PO HS [facility] Chlorhexidine Gluconate 1 applic 04/17/18 22:00 04/17/18 23:36 Hibiclens For Decolonization - TP 1 applic HS [facility] Administration Clonazepam 0.25 mg 04/17/18 22:02 04/18/18 11:38 Klonopin - PO 0.25 mg DAILY PRN Administration ANXIETY Lactated Ringer's 1,000 mls @ 100 mls/hr 04/17/18 22:00 04/18/18 09:40 Lactated Ringers Solution IV 100 mls/hr ASDIR [facility] Administration Mupirocin 1 applic 04/17/18 22:00 04/18/18 09:39 Bactroban Ointment (For Decolonization) - NS 04/22/18 21:59 1 applic BID [facility] Administration Ondansetron HCl 4 mg 04/17/18 21:50 Zofran Injection IVPUSH Q6H PRN NAUSEA AND/OR VOMITING Oxycodone HCl 5 mg 04/17/18 19:14 Roxicodone - PO Q3H PRN PAIN LEVEL 1-5 Oxycodone HCl 10 mg 04/17/18 19:14 04/18/18 05:50 Roxicodone - PO 10 mg Q3H PRN Administration PAIN LEVEL 6-10 Oxycodone HCl 10 mg 04/18/18 10:00 04/18/18 09:37 Oxycontin - PO 04/20/18 19:15 10 mg BID [facility] Administration ASSESSMENT/PLAN: Patient is a 57 year old male who presented for Post operative management s/p laminectomies L3, L4, L5, and S1 and L4-S1 PLISF. Patient admitted to ICU for further monitoring and management. Neurology #S/P Laminectomies L3, L4, L5, and S1 and L4-S1 PLISF -POD #1 -10-20cc serosanguinous fluid draining from back -Continue pain management with Oxycodone 10mg BID with Oxycodone 5mg PRN Q3H -bowel regimen due to pain medications -Continue IV tylenol for pain -Continue IV fluids with LR @100mls/hr -Continue to monitor Urine ouput -Continue Incentive spirometer -Neurochecks qshift -PT ordered -Continue NPO until flatus -Continue DVT prophylaxis -OOB as tolerated : initially caldwell 1800cc, pt reports urgency and discomfort, similar to post op 9 yr ago. caldwell replaced and drained 500cc, pt feeling better. monitor, urgency and discomfort possibly due to residual post op anesthetic effects Cardiology #CAD s/p Stent -Hold ASA 325mg, as per ortho -Continue home medication Metoprolol once primary team confirms dosage #HLD -Continue home medication Atorvastatin 20mg HS Psychology #Anxiety -Continue Clonazepam 0.25mg PRN F/E/N -IV LR @100mls/hr -labs ordered -NPO until flatus Prophylaxis -High risk. SCD's for DVT -No GI indicated Disposition -Full code -Continue post op management in ICU -OOB as tolerated -PT eval -pain ctl -anticipate dc in 3-4 days Visit type - Emergency Visit Emergency Visit: Yes ED Registration Date: 04/17/18 Care time: The patient presented to the Emergency Department on the above date and was hospitalized for further evaluation of their emergent condition. - New Patient This patient is new to me today: Yes Date on this admission: 04/18/18 - Critical Care Critical Care patient: Yes Total Critical Care Time (in minutes): 35 Critical Care Statement: The care of this patient involved high complexity decision making to prevent further life threatening deterioration of the patient 's condition and/or to evaluate & treat vital organ system(s) failure or risk of failure.
--- NOTE | 2018-04-18 14:59 | PN ---
Teaching Attending Note Name of Resident: Dominick Goncalves ATTENDING PHYSICIAN STATEMENT I saw and evaluated the patient. I reviewed the resident's note and discussed the case with the resident. I agree with the resident's findings and plan as documented. SUBJECTIVE: Patient seen and examined in the ICU. Noted urinary retention requiring caldwell insertion. No CP or SOB. Pain 9 and being given pain meds by RN now. Intake & Output 04/15/18 04/16/18 04/17/18 04/18/18 23:59 23:59 23:59 23:59 Intake Total 4225 1050 Output Total 2125 2620 Balance 2100 -1570 Last Vital Signs Temp Pulse Resp BP Pulse Ox 99.5 F 78 22 H 122/67 99 04/18/18 10:00 04/18/18 12:00 04/18/18 12:00 04/18/18 12:00 04/18/18 09:00 Active Medications Acetaminophen (Ofirmev Injection -) 1,000 mg IVPB Q8H [facility] Stop: 04/18/18 19:31 Last Admin: 04/18/18 11:25 Dose: 1,000 mg Atorvastatin Calcium (Lipitor -) 20 mg PO HS [facility] Chlorhexidine Gluconate (Hibiclens For Decolonization -) 1 applic TP HS [facility] Last Admin: 04/17/18 23:36 Dose: 1 applic Clonazepam (Klonopin -) 0.25 mg PO DAILY PRN PRN Reason: ANXIETY Last Admin: 04/18/18 11:38 Dose: 0.25 mg Docusate Sodium (Colace -) 100 mg PO TID [facility] Dextrose/Sodium Chloride (D5-Ns -) 1,000 mls @ 100 mls/hr IV ASDIR [facility] Mupirocin (Bactroban Ointment (For Decolonization) -) 1 applic NS BID [facility] Stop: 04/22/18 21:59 Last Admin: 04/18/18 09:39 Dose: 1 applic Ondansetron HCl (Zofran Injection) 4 mg IVPUSH Q6H PRN PRN Reason: NAUSEA AND/OR VOMITING Oxycodone HCl (Roxicodone -) 5 mg PO Q3H PRN PRN Reason: PAIN LEVEL 1-5 Oxycodone HCl (Roxicodone -) 10 mg PO Q3H PRN PRN Reason: PAIN LEVEL 6-10 Last Admin: 04/18/18 05:50 Dose: 10 mg Oxycodone HCl (Oxycontin -) 10 mg PO BID [facility] Stop: 04/20/18 19:15 Last Admin: 04/18/18 09:37 Dose: 10 mg GENERAL: Awake, alert, and fully oriented, in no acute distress. HEAD: Normal with no signs of trauma. EYES: sclera anicteric, conjunctiva clear. EARS, NOSE, THROAT: Oropharynx clear without exudates. Moist mucous membranes. NECK: Normal range of motion, supple without lymphadenopathy, JVD, or masses. LUNGS: Breath sounds equal, clear to auscultation bilaterally. No wheezes, and no crackles. No accessory muscle use. HEART: Regular rate and rhythm, normal S1 and S2 without murmur, rub or gallop. ABDOMEN: Soft, nontender, not distended, normoactive bowel sounds, no guarding, no rebound, no masses. No hepatomegaly or splenomegaly. : Caldwell placed draining clear yellow urine MUSCULOSKELETAL: No CVA tenderness. UPPER EXTREMITIES: 2+ pulses, warm, well-perfused. No cyanosis. No clubbing. Cap refill <2 seconds. No peripheral edema. LOWER EXTREMITIES: SCD's in bilateral legs. 2+ pulses, warm, well-perfused. No calf tenderness. No peripheral edema. NEUROLOGICAL: Non-focal PSYCHIATRIC: Cooperative. Good eye contact. Appropriate mood and affect. SKIN: Warm, dry, normal turgor, no rashes or lesions noted. ASSESSMENT/PLAN: POD # 1: Laminectomies L3, L4, L5, and S1 and L4-S1 PLISF CAD PCI Anxiety Pain management with Oxycodone and MS PRN O2 as needed Incentive Spirometry Neurochecks VTE prophylaxis Home meds IVF PO as tolerated Dr Argueta
[2018-04-18] MEDS: DEXTROSE 5%-NORMAL SALINE 1,000 ML IV SCH (15:29)
[2018-04-18] MEDS: DOCUSATE SODIUM 100 MG CAPSULE (FP) PO SCH ×2 (15:31→22:06)
[2018-04-18] MEDS ORDERED: CYCLOBENZAPRINE HCL 5 MG TABLET PO PRN (15:36)
--- NOTE | 2018-04-18 18:41 | PN ---
Physical Exam: SUBJECTIVE: Patient seen and examined. Distress throughout the night b/c Pt. had ongoing urges to urinate with Geronimo in place, feels unable to pass urine. P OBJECTIVE: Vital Signs Period Temp Pulse Resp BP Sys/Reyez Pulse Ox Last 24 Hr 97.5 F-99.6 F 59-82 10 92-138/50-83 99-100 GENERAL: The patient is awake, alert, and fully oriented, in acute distress 2/2 to urinary urgency HEAD: Normal with no signs of trauma. EYES: PERRL, extraocular movements intact, sclera anicteric, conjunctiva clear. No ptosis. NECK: Trachea midline, full range of motion, supple. LUNGS: Breath sounds equal, clear to auscultation bilaterally, no wheezes, no crackles, no accessory muscle use. HEART: Regular rate and rhythm, S1, S2 without murmur, rub or gallop. ABDOMEN: firm, nontender, distended, normoactive bowel sounds, dull to percussion EXTREMITIES: 5/5 muscle strength throughout all extremities, sensation intact, 2 + dorsal pedal pulses, warm, well-perfused, no calf tenderness, no edema. NEUROLOGICAL: Normal speech, gait not observed. PSYCH: Normal mood, normal affect for the situation SKIN: Warm, dry, normal turgor, no rashes or lesions noted Laboratory Results - last 24 hr 04/18/18 04/18/18 04/18/18 05:30 05:30 05:30 WBC 14.6 H RBC 4.08 Hgb 12.3 Hct 36.6 MCV 89.7 MCH 30.2 MCHC 33.7 RDW 13.2 Plt Count 177 MPV 8.5 Absolute Neuts (auto) 12.1 H Neutrophils % 82.6 Lymphocytes % 8.5 Monocytes % 8.7 Eosinophils % 0.1 Basophils % 0.1 Nucleated RBC % 0 Sodium 140 Potassium 4.1 Chloride 104 Carbon Dioxide 30 Anion Gap 6 L BUN 15 Creatinine 0.8 Creat Clearance w eGFR > 60 Random Glucose 100 Calcium 7.9 L Phosphorus 4.4 Magnesium 2.0 Blood Type O POSITIVE Active Medications Current Medications Acetaminophen (Ofirmev Injection -) 1,000 mg IVPB Q8H [facility] Stop: 04/18/18 19:31 Last Admin: 04/18/18 11:25 Dose: 1,000 mg Atorvastatin Calcium (Lipitor -) 20 mg PO HS [facility] Chlorhexidine Gluconate (Hibiclens For Decolonization -) 1 applic TP HS [facility] Last Admin: 04/17/18 23:36 Dose: 1 applic Clonazepam (Klonopin -) 0.25 mg PO DAILY PRN PRN Reason: ANXIETY Last Admin: 04/18/18 11:38 Dose: 0.25 mg Cyclobenzaprine HCl (Cyclobenzaprine Hcl) 5 mg PO BID PRN PRN Reason: PAIN LEVEL 1-5 Docusate Sodium (Colace -) 100 mg PO TID [facility] Last Admin: 04/18/18 15:31 Dose: 100 mg Dextrose/Sodium Chloride (D5-Ns -) 1,000 mls @ 100 mls/hr IV ASDIR [facility] Last Admin: 04/18/18 15:29 Dose: 100 mls/hr Mupirocin (Bactroban Ointment (For Decolonization) -) 1 applic NS BID [facility] Stop: 04/22/18 21:59 Last Admin: 04/18/18 09:39 Dose: 1 applic Ondansetron HCl (Zofran Injection) 4 mg IVPUSH Q6H PRN PRN Reason: NAUSEA AND/OR VOMITING Oxycodone HCl (Roxicodone -) 5 mg PO Q3H PRN PRN Reason: PAIN LEVEL 1-5 Oxycodone HCl (Roxicodone -) 10 mg PO Q3H PRN PRN Reason: PAIN LEVEL 6-10 Last Admin: 04/18/18 18:26 Dose: 10 mg Oxycodone HCl (Oxycontin -) 10 mg PO BID [facility] Stop: 04/20/18 19:15 Last Admin: 04/18/18 09:37 Dose: 10 mg Home Medications Medication Instructions Recorded Aspirin [ASA -] 325 mg PO DAILY 04/13/18 Atorvastatin Ca [Lipitor] 20 mg PO HS 04/13/18 [place]-3 Fatty Acids/Fish Oil [Fish 1 each PO DAILY 04/13/18 Oil 1,000 mg Capsule] clonazePAM [Klonopin -] 0.25 mg PO PRN PRN 04/13/18 Multivitamin/Iron/Folic Acid 1 each PO DAILY 04/17/18 [Centrum Adults Tablet] ASSESSMENT/PLAN: Pt. is a 57 y.o. M w. PMHx. of HLD, Spinal Surgery(2008), CAD(s/p stent in 2012) , presents s/p L3-L4 revision laminectomy; L3,L4,L5 laminectomy; L5, S1 partial corpectomies, and L4-S1 PLSIF. #Musculoskeletal -s/p spinal surgery POD#1 started Flexeril 5mg BID c/w Oxycontin 10mg BID [facility] c/w oxycodone 5mg and 10mg Q3H PRN c/w Incentive Spirometer Physical Therapy Neuro checks Q Shift #Cardiology -CAD Hold Aspirin 325mg- resume per Ortho -HLD c/w Atorvastatin 20mg #Psychiatry -Anxiety c/w Clonazepam 0.25mg PRN #Gastroenterology -Nausea Zofran 4mg Q6H PRN #F/E/N -D5-NS @ 100ml/hr -monitor electrolytes and replete as needed -NPO until passing flatus #Dvt. Ppx. -Mechanical Ppx. ONLY -SCDs Visit type - Emergency Visit Emergency Visit: No - New Patient This patient is new to me today: Yes Date on this admission: 04/18/18 - Critical Care Critical Care patient: Yes Total Critical Care Time (in minutes): 36 Critical Care Statement: The care of this patient involved high complexity decision making to prevent further life threatening deterioration of the patient 's condition and/or to evaluate & treat vital organ system(s) failure or risk of failure. - Discharge Referral Referred to [facility] Med P.C.: No
[2018-04-18] MEDS: CHLORHEXIDINE GLUCONATE 4% CLEANSER FOR DECOLONIZATION TP SCH (22:03)
[2018-04-18] MEDS: ATORVASTATIN CA 20 MG TABLET (FP) PO SCH (22:04)
[2018-04-19] MEDS: oxyCODONE HCL 5 MG TABLET PO PRN ×3 (01:33→15:20)
[2018-04-19] MEDS ORDERED: CYCLOBENZAPRINE HCL 10 MG TABLET (FP) PO PRN (02:48)
[2018-04-19] MEDS: DOCUSATE SODIUM 100 MG CAPSULE (FP) PO SCH ×3 (05:39→21:07)
[2018-04-19] MEDS ORDERED: ACETAMINOPHEN 1000 MG/100 ML VIAL (NON FORMULARY) IVPB ONE (06:39)
--- NOTE | 2018-04-19 07:59 | PN ---
Progress Note (short form) - Note Progress Note: ICU Comfortable No incisional or leg pain Vitals stable Abd Soft Distended No flatus as yet Wound Dry Drain removed New dressings applied Neuro At base line PLAN Pain Mx Mobilise T/F to floor D/C planning home
[2018-04-19] MEDS ORDERED: diazePAM CARPU-JECT 10 MG/2 ML DISP.SYRIN IVPUSH PRN (08:24)
[2018-04-19 08:37] LABS: BASO % 0.2 % (0-2.0); EOS % 0.6 % (0-4.5); LYMPH % 7.7 % (8-40); MCH 29.9 pg (25.7-33.7); MCHC 33.2 g/dl (32.0-35.9); MEAN CELL VOLUME 90.1 fl (80-96); MEAN PLT VOLUME 8.3 fl (7.5-11.1); MONO % 10.8 % (3.8-10.2); NEUT % 80.7 % (42.8-82.8); PLATELET COUNT 172 K/MM3 (134-434); RDW 13.6 % (11.9-15.9)
[2018-04-19 08:53] LABS: ALBUMIN 2.8 g/dl (3.4-5.0); ALK PHOS 70 U/L (45-117); ANION GAP 6 MMOL/L (8-16); BILIRUBIN,TOTAL 1.4 mg/dL (0.2-1); BLOOD UREA NITROGEN 10 mg/dL (7-18); CALCIUM 7.5 mg/dL (8.5-10.1); CHLORIDE 104 mmol/L (98-107); CO2 29 mmol/L (21-32); CREATININE 0.8 mg/dL (0.55-1.3); GLUCOSE,RANDOM 121 mg/dL (74-106); POTASSIUM 3.6 mmol/L (3.5-5.1); SGOT/AST 44 U/L (15-37); SGPT/ALT 31 U/L (13-61); SODIUM 138 mmol/L (136-145); TOT PROT 5.2 g/dl (6.4-8.2)
--- NOTE | 2018-04-19 08:57 | PN ---
Teaching Attending Note Name of Resident: Clovis Barron ATTENDING PHYSICIAN STATEMENT I saw and evaluated the patient. I reviewed the resident's note and discussed the case with the resident. I agree with the resident's findings and plan as documented with exceptions below. SUBJECTIVE: Patient seen and examined. sitting in chair, pain better, passing gas but no BM yet, caldwell in place. OBJECTIVE: Vital Signs Period Temp Pulse Resp BP Sys/Reyez Pulse Ox Last 24 Hr 97.5 F-99.6 F 69-98 16-24 116-133/64-75 99 Intake & Output 04/16/18 04/17/18 04/18/18 04/19/18 23:59 23:59 23:59 23:59 Intake Total 4225 2750 800 Output Total 2125 5320 720 Balance 2100 -2570 80 general: sitting in chair in no acute distress chest; CTAB, no rales or wheezing Abdomen:soft, NT, positive bowel sounds, mild distension extremities: no edema Musculoskeletal: clean dressing, drain removed Active Medications Atorvastatin Calcium (Lipitor -) 20 mg PO HS [facility] Last Admin: 04/18/18 22:04 Dose: 20 mg Chlorhexidine Gluconate (Hibiclens For Decolonization -) 1 applic TP HS [facility] Last Admin: 04/18/18 22:03 Dose: 1 applic Clonazepam (Klonopin -) 0.25 mg PO DAILY PRN PRN Reason: ANXIETY Last Admin: 04/18/18 11:38 Dose: 0.25 mg Cyclobenzaprine HCl (Cyclobenzaprine Hcl) 5 mg PO BID [facility] Docusate Sodium (Colace -) 100 mg PO TID [facility] Last Admin: 04/19/18 05:39 Dose: 100 mg Dextrose/Sodium Chloride (D5-Ns -) 1,000 mls @ 100 mls/hr IV ASDIR [facility] Last Admin: 04/18/18 15:29 Dose: 100 mls/hr Mupirocin (Bactroban Ointment (For Decolonization) -) 1 applic NS BID [facility] Stop: 04/22/18 21:59 Last Admin: 04/18/18 22:04 Dose: 1 applic Ondansetron HCl (Zofran Injection) 4 mg IVPUSH Q6H PRN PRN Reason: NAUSEA AND/OR VOMITING Oxycodone HCl (Roxicodone -) 5 mg PO Q3H PRN PRN Reason: PAIN LEVEL 1-5 Last Admin: 04/19/18 01:33 Dose: 5 mg Oxycodone HCl (Roxicodone -) 10 mg PO Q3H PRN PRN Reason: PAIN LEVEL 6-10 Last Admin: 04/19/18 05:39 Dose: 10 mg Oxycodone HCl (Oxycontin -) 10 mg PO BID [facility] Stop: 04/20/18 19:15 Last Admin: 04/18/18 22:02 Dose: 10 mg Laboratory Results - last 24 hr 04/18/18 04/19/18 04/19/18 05:30 08:00 08:00 WBC 15.0 H RBC 4.00 Hgb 12.0 Hct 36.0 MCV 90.1 MCH 29.9 MCHC 33.2 RDW 13.6 Plt Count 172 MPV 8.3 Absolute Neuts (auto) 12.1 H Neutrophils % 80.7 Lymphocytes % 7.7 L Monocytes % 10.8 H Eosinophils % 0.6 D Basophils % 0.2 Nucleated RBC % 0 Sodium 138 Potassium 3.6 Chloride 104 Carbon Dioxide 29 Anion Gap 6 L BUN 10 Creatinine 0.8 Creat Clearance w eGFR > 60 Random Glucose 121 H Calcium 7.5 L Total Bilirubin 1.4 H AST 44 H ALT 31 Alkaline Phosphatase 70 Total Protein 5.2 L Albumin 2.8 L Blood Type O POSITIVE ASSESSMENT AND PLAN: 57 yom with PMHX of HLD, CAD s/p PCI, admitted for elective lumbar spinal surgery. -Lumbar spinal stenosis s/p KHADRA/Revision laminectomy L3-L4/Laminectomy L4, L5, S1/L4-L5, L5-S1 PLIF/L5, S1 partial corpectomies/L3-L4 SPO/L3-S1 PISF/ Bone marrow aspiration/Bone autograft/Bone allograft -HLD -CAD s/p ?PCI Plan: Clear liquid diet, advance to solids as tolerated. Passing flatus, no BM, good bowel sounds. Continue colace TID, add miralax. Pain control with oxycodone/tylenol. Add flexeril Encouraged to work with PT. Repeat voiding trial after BM once starting working with PT Drain removed, spinal surgery input note.d DVTPPX/dispo per spinal surgery Agree with transfer to floors. Plan discussed with patient and nursing in detail, all questions answered. Total critical care time spent 25 min.
[2018-04-19] MEDS: CYCLOBENZAPRINE HCL 10 MG TABLET (FP) PO SCH ×2 (09:18→21:16)
[2018-04-19] MEDS ORDERED: diazePAM 5 MG TABLET PO SCH (10:00)
[2018-04-19] MEDS: ACETAMINOPHEN 1000 MG/100 ML VIAL (NON FORMULARY) IVPB PRN ×2 (11:14→19:03)
[2018-04-19] MEDS: MUPIROCIN 2% TOPICAL OINTMENT FOR DECOLONIZATION NS SCH (11:41)
[2018-04-19] MEDS: oxyCODONE HCL 10 MG SUSTAINED ACTING TABLET PO SCH ×2 (11:44→21:07)
--- NOTE | 2018-04-19 12:59 | PN ---
Teaching Attending Note Name of Resident: Dominick Goncalves ATTENDING PHYSICIAN STATEMENT I saw and evaluated the patient. I reviewed the resident's note and discussed the case with the resident. I agree with the resident's findings and plan as documented. SUBJECTIVE: Pt seen and examined in the ICU. Pain controlled with tylenol. +flatus. Started on clears. No fevers or chills. Denies shortness of breath or chest pain. OBJECTIVE: Vital Signs Period Temp Pulse Resp BP Sys/Reyez Pulse Ox Last 24 Hr 97.5 F-99.6 F 80-102 16-24 116-133/62-75 99 Intake & Output 04/16/18 04/17/18 04/18/18 04/19/18 23:59 23:59 23:59 23:59 Intake Total 4225 2750 800 Output Total 2125 5320 720 Balance 2100 -2570 80 Gen: NAD at rest Heart: RRR Lung: decreased breath sounds at the bases Abd: soft, nontender Ext: no edema CBC, BMP 04/19/18 08:00 04/19/18 08:00 Active Medications Acetaminophen (Ofirmev Injection -) 1,000 mg IVPB Q6H PRN PRN Reason: PAIN LEVEL 7 - 10 Last Admin: 04/19/18 11:14 Dose: 1,000 mg Atorvastatin Calcium (Lipitor -) 20 mg PO [facility] Last Admin: 04/18/18 22:04 Dose: 20 mg Chlorhexidine Gluconate (Hibiclens For Decolonization -) 1 applic TP HS [facility] Last Admin: 04/18/18 22:03 Dose: 1 applic Clonazepam (Klonopin -) 0.25 mg PO DAILY PRN PRN Reason: ANXIETY Last Admin: 04/18/18 11:38 Dose: 0.25 mg Cyclobenzaprine HCl (Flexeril -) 5 mg PO BID [facility] Last Admin: 04/19/18 09:18 Dose: 5 mg Docusate Sodium (Colace -) 100 mg PO TID [facility] Last Admin: 04/19/18 05:39 Dose: 100 mg Dextrose/Sodium Chloride (D5-Ns -) 1,000 mls @ 100 mls/hr IV ASDIR [facility] Last Admin: 04/18/18 15:29 Dose: 100 mls/hr Mupirocin (Bactroban Ointment (For Decolonization) -) 1 applic NS BID [facility] Stop: 04/22/18 21:59 Last Admin: 04/19/18 11:41 Dose: 1 applic Ondansetron HCl (Zofran Injection) 4 mg IVPUSH Q6H PRN PRN Reason: NAUSEA AND/OR VOMITING Oxycodone HCl (Roxicodone -) 5 mg PO Q3H PRN PRN Reason: PAIN LEVEL 1-5 Last Admin: 04/19/18 01:33 Dose: 5 mg Oxycodone HCl (Roxicodone -) 10 mg PO Q3H PRN PRN Reason: PAIN LEVEL 6-10 Last Admin: 04/19/18 05:39 Dose: 10 mg Oxycodone HCl (Oxycontin -) 10 mg PO BID [facility] Stop: 04/20/18 19:15 Last Admin: 04/19/18 11:44 Dose: Not Given ASSESSMENT AND PLAN: Lumbar Spinal Stenosis s/p KHADRA/Revision Laminectomy/PLIF/PISF Hypercholesterolemia - pain control - incentive spirometry - PO as tolerated - d/c IVF if tolerating PO - d/c caldwell once OOB - DVT prophylaxis/disposition per surgery
--- NOTE | 2018-04-19 13:58 | PN ---
Physical Exam: SUBJECTIVE: Patient seen and examined at bedside. caldwell in place and draining well, back drain removed, pt feeling better. pain improved w/ meds. will transfer to [facility]. +flatus. Started on clears. No fevers or chills. Denies shortness of breath or chest pain. OBJECTIVE: Vital Signs Period Temp Pulse Resp BP Sys/Reyez Pulse Ox Last 24 Hr 97.5 F-99.6 F 80-102 16-24 105-133/62-75 99 GENERAL: Awake, alert, and fully oriented, in no acute distress. HEAD: NCAT EYES: PERRLA, extraocular movements intact, sclera anicteric, conjunctiva clear. No lid lag. EARS, NOSE, THROAT: Oropharynx clear without exudates. MMM NECK: Normal range of motion, supple without lymphadenopathy, JVD, or masses. LUNGS: CTAB No wheezes, and no crackles. No accessory muscle use. HEART: RRR, normal S1 and S2 without murmur, rub or gallop. ABDOMEN: Soft, NTND, normoactive bowel sounds, no guarding, no rebound, no masses. : Caldwell placed draining clear yellow urine MUSCULOSKELETAL: No CVA tenderness. UPPER EXTREMITIES: 2+ pulses, warm, well-perfused. No cyanosis. No clubbing. Cap refill <2 seconds. No peripheral edema. LOWER EXTREMITIES: SCD's in bilateral legs. 2+ pulses, warm, well-perfused. No calf tenderness. No peripheral edema. NEUROLOGICAL: Cranial nerves II-XII intact. Normal speech. Motor strength 3-4/ 5 bilaterally with sensation intact. PSYCHIATRIC: Cooperative. Good eye contact. Appropriate mood and affect. SKIN: Warm, dry, normal turgor, no rashes or lesions noted. Laboratory Results - last 24 hr 04/19/18 04/19/18 08:00 08:00 WBC 15.0 H RBC 4.00 Hgb 12.0 Hct 36.0 MCV 90.1 MCH 29.9 MCHC 33.2 RDW 13.6 Plt Count 172 MPV 8.3 Absolute Neuts (auto) 12.1 H Neutrophils % 80.7 Lymphocytes % 7.7 L Monocytes % 10.8 H Eosinophils % 0.6 D Basophils % 0.2 Nucleated RBC % 0 Sodium 138 Potassium 3.6 Chloride 104 Carbon Dioxide 29 Anion Gap 6 L BUN 10 Creatinine 0.8 Creat Clearance w eGFR > 60 Random Glucose 121 H Calcium 7.5 L Total Bilirubin 1.4 H AST 44 H ALT 31 Alkaline Phosphatase 70 Total Protein 5.2 L Albumin 2.8 L Active Medications Generic Name Dose Route Start Last Admin Trade Name Freq PRN Reason Stop Dose Admin Acetaminophen 1,000 mg 04/19/18 11:06 04/19/18 11:14 Ofirmev Injection - IVPB 1,000 mg Q6H PRN Administration PAIN LEVEL 7 - 10 Atorvastatin Calcium 20 mg 04/18/18 22:00 04/18/18 22:04 Lipitor - PO 20 mg HS LOTTIE Administration Chlorhexidine Gluconate 1 applic 04/17/18 22:00 04/18/18 22:03 Hibiclens For Decolonization - TP 1 applic HS LOTTIE Administration Clonazepam 0.25 mg 04/17/18 22:02 04/18/18 11:38 Klonopin - PO 0.25 mg DAILY PRN Administration ANXIETY Cyclobenzaprine HCl 5 mg 04/19/18 10:00 04/19/18 09:18 Flexeril - PO 5 mg BID LOTTIE Administration Docusate Sodium 100 mg 04/18/18 14:30 04/19/18 05:39 Colace - PO 100 mg TID LOTTIE Administration Dextrose/Sodium Chloride 1,000 mls @ 100 mls/hr 04/18/18 15:00 04/18/18 15:29 D5-Ns - IV 100 mls/hr ASDIR LOTTIE Administration Mupirocin 1 applic 04/17/18 22:00 04/19/18 11:41 Bactroban Ointment (For Decolonization) - NS 04/22/18 21:59 1 applic BID LOTTIE Administration Ondansetron HCl 4 mg 04/17/18 21:50 Zofran Injection IVPUSH Q6H PRN NAUSEA AND/OR VOMITING Oxycodone HCl 5 mg 04/17/18 19:14 04/19/18 01:33 Roxicodone - PO 5 mg Q3H PRN Administration PAIN LEVEL 1-5 Oxycodone HCl 10 mg 04/17/18 19:14 04/19/18 05:39 Roxicodone - PO 10 mg Q3H PRN Administration PAIN LEVEL 6-10 Oxycodone HCl 10 mg 04/18/18 10:00 04/19/18 11:44 Oxycontin - PO 04/20/18 19:15 Not Given BID [facility] ASSESSMENT/PLAN: Patient is a 57 year old male who presented for Post operative management s/p laminectomies L3, L4, L5, and S1 and L4-S1 PLISF. Patient admitted to ICU for further monitoring and management. Neurology #S/P Laminectomies L3, L4, L5, and S1 and L4-S1 PLISF -POD #2 -drain removed -Continue pain management with IV tylenol, Oxycodone 10mg BID with Oxycodone 5mg PRN Q3H -bowel regimen due to pain medications -Continue IV fluids with LR @100mls/hr -Continue to monitor Urine ouput -Continue Incentive spirometer -Neurochecks qshift -PT ordered -+ flatus, start w/ clears and advance as tolerated -Continue DVT prophylaxis -OOB as tolerated : urgency and discomfort resolved d/c caldwell once OOB Cardiology #CAD s/p Stent -Hold ASA 325mg, as per ortho -Continue home medication Metoprolol once primary team confirms dosage #HLD -Continue home medication Atorvastatin 20mg HS Psychology #Anxiety -Continue Clonazepam 0.25mg PRN F/E/N -IV LR @100mls/hr -replete prn - + flatus, start w/ clears and advance as tolerated Prophylaxis -High risk. SCD's for DVT -No GI indicated Disposition -Full code -OOB as tolerated -PT eval -pain ctl -pt is stable and ready for transfer to med/surg. We will sign off. Further care per primary team/PCP -anticipate dc in 2-3 days Visit type - Emergency Visit Emergency Visit: Yes ED Registration Date: 04/17/18 Care time: The patient presented to the Emergency Department on the above date and was hospitalized for further evaluation of their emergent condition. - New Patient This patient is new to me today: Yes Date on this admission: 04/19/18 - Critical Care Critical Care patient: Yes Total Critical Care Time (in minutes): 40 Critical Care Statement: The care of this patient involved high complexity decision making to prevent further life threatening deterioration of the patient 's condition and/or to evaluate & treat vital organ system(s) failure or risk of failure.
[2018-04-19] MEDS: clonazePAM 0.5 MG TABLET PO PRN ×2 (15:21→21:06)
--- NOTE | 2018-04-19 18:02 | PATH ---
Surgical Pathology Report Patient Name: CARLOS AMIN [facility]. Rec. 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 Specimen(s) Received A: DISC L4/L5 B: REMOVED HARDWARE Clinical History Lumbar spinal stenosis Final Diagnosis A. DISC, L4-5, LAMINECTOMY AND POSTERIOR LUMBAR INTERBODY FUSION: BENIGN INTERVERTEBRAL DISC TISSUE. B. HARDWARE, REMOVAL: SURGICAL HARDWARE. MACROSCOPIC DIAGNOSIS Electronically Signed Concepción Good M.D. Gross Description A. Received in formalin labeled "disc L4-L5," is a 4.5 x 4.5 x 0.4 cm aggregate of rahman fragments of fibrocartilaginous tissue. A small business sales representative portion is submitted in one cassette. B. Received fresh labeled "removed hardware," is a 6 centimeter in greatest dimension metallic device, consistent with a clamp. The clamp displays an attached 3.5 cm in length dugan metallic ayaan. Also received within the same container is an additional 3.5 cm in greatest dimension dugan metallic ayaan. There are 9 metallic screws also received within the same container ranging from 0.4-5.5 cm in length. No soft tissue is present. No sections are submitted, gross only. DL/04/18/2018 saudi/04/18/2018
[2018-04-19] MEDS: ATORVASTATIN CA 20 MG TABLET (FP) PO SCH (21:07)
[2018-04-19] MEDS: POLYETHYLENE GLYCOL 3350 119 GM BTL PO SCH (21:09)
[2018-04-19] MEDS: CHLORHEXIDINE GLUCONATE 4% CLEANSER FOR DECOLONIZATION TP SCH (21:11)
--- NOTE | 2018-04-19 22:41 | CONSULT ---
Consultation: REQUESTING PROVIDER: CONSULT REQUEST: We have been asked to medically evaluate this patient for ( specify). HISTORY OF PRESENT ILLNESS: REVIEW OF SYSTEMS: CONSTITUTIONAL: Absent: fever, chills, diaphoresis, generalized weakness, malaise, loss of appetite, weight change HEENT: Absent: rhinorrhea, nasal congestion, throat pain, throat swelling, difficulty swallowing, mouth swelling, ear pain, eye pain, visual changes CARDIOVASCULAR: Absent: chest pain, syncope, palpitations, irregular heart rate, lightheadedness , peripheral edema RESPIRATORY: Absent: cough, shortness of breath, dyspnea with exertion, orthopnea, wheezing, stridor, hemoptysis GASTROINTESTINAL: Absent: abdominal pain, abdominal distension, nausea, vomiting, diarrhea, constipation, melena, hematochezia GENITOURINARY: Absent: dysuria, frequency, urgency, hesitancy, hematuria, flank pain, genital pain MUSCULOSKELETAL: Absent: myalgia, arthralgia, joint swelling, back pain, neck pain SKIN: Absent: rash, itching, pallor HEMATOLOGIC/IMMUNOLOGIC: Absent: easy bleeding, easy bruising, lymphadenopathy, frequent infections ENDOCRINE: Absent: unexplained weight gain, unexplained weight loss, heat intolerance, cold intolerance NEUROLOGIC: Absent: headache, focal weakness or paresthesias, dizziness, unsteady gait, seizure, mental status changes, bladder or bowel incontinence PSYCHIATRIC: Absent: anxiety, depression, suicidal or homicidal ideation, hallucinations. PHYSICAL EXAMINATION Vital Signs - 24 hr 04/19/18 04/19/18 04/19/18 00:00 02:00 04:00 Temperature 97.5 F L Pulse Rate 87 89 88 Respiratory 18 18 18 Rate Blood Pressure 120/64 126/66 121/75 O2 Sat by Pulse Oximetry (%) 04/19/18 04/19/18 04/19/18 06:00 08:00 09:00 Temperature Pulse Rate 98 H 102 H Respiratory 18 17 18 Rate Blood Pressure 126/74 122/62 O2 Sat by Pulse 99 Oximetry (%) 04/19/18 04/19/18 04/19/18 10:00 12:00 14:00 Temperature 98.6 F 98.8 F Pulse Rate 82 101 H 85 Respiratory 18 20 20 Rate Blood Pressure 124/75 105/74 123/74 O2 Sat by Pulse Oximetry (%) 10/24/18 10/24/18 10/24/18 16:00 18:00 20:00 Temperature Pulse Rate 83 95 H 90 Respiratory 20 18 18 Rate Blood Pressure 130/73 134/77 127/69 O2 Sat by Pulse Oximetry (%) 04/19/18 04/19/18 21:00 22:00 Temperature 98.8 F Pulse Rate 95 H Respiratory 21 H Rate Blood Pressure 117/77 O2 Sat by Pulse 97 Oximetry (%) GENERAL: Awake, alert, and fully oriented, in no acute distress. HEAD: Normal with no signs of trauma. EYES: Pupils equal, round and reactive to light, extraocular movements intact, sclera anicteric, conjunctiva clear. No lid lag. EARS, NOSE, THROAT: Ears normal, nares patent, oropharynx clear without exudates. Moist mucous membranes. NECK: Normal range of motion, supple without lymphadenopathy, JVD, or masses. LUNGS: Breath sounds equal, clear to auscultation bilaterally. No wheezes, and no crackles. No accessory muscle use. HEART: Regular rate and rhythm, normal S1 and S2 without murmur, rub or gallop. ABDOMEN: Soft, nontender, not distended, normoactive bowel sounds, no guarding, no rebound, no masses. No hepatomegaly or splenomegaly. MUSCULOSKELETAL: Normal range of motion at all joints. No bony deformities or tenderness. No CVA tenderness. UPPER EXTREMITIES: 2+ pulses, warm, well-perfused. No cyanosis. No clubbing. Cap refill <2 seconds. No peripheral edema. LOWER EXTREMITIES: 2+ pulses, warm, well-perfused. No calf tenderness. No peripheral edema. NEUROLOGICAL: Cranial nerves II-XII intact. Normal speech. Normal gait. PSYCHIATRIC: Cooperative. Good eye contact. Appropriate mood and affect. SKIN: Warm, dry, normal turgor, no rashes or lesions noted. Laboratory Results - last 24 hr 04/19/18 04/19/18 08:00 08:00 WBC 15.0 H RBC 4.00 Hgb 12.0 Hct 36.0 MCV 90.1 MCH 29.9 MCHC 33.2 RDW 13.6 Plt Count 172 MPV 8.3 Absolute Neuts (auto) 12.1 H Neutrophils % 80.7 Lymphocytes % 7.7 L Monocytes % 10.8 H Eosinophils % 0.6 D Basophils % 0.2 Nucleated RBC % 0 Sodium 138 Potassium 3.6 Chloride 104 Carbon Dioxide 29 Anion Gap 6 L BUN 10 Creatinine 0.8 Creat Clearance w eGFR > 60 Random Glucose 121 H Calcium 7.5 L Total Bilirubin 1.4 H AST 44 H ALT 31 Alkaline Phosphatase 70 Total Protein 5.2 L Albumin 2.8 L Active Medications Current Medications Acetaminophen (Ofirmev Injection -) 1,000 mg IVPB Q6H PRN PRN Reason: PAIN LEVEL 7 - 10 Last Admin: 04/19/18 19:03 Dose: 1,000 mg Atorvastatin Calcium (Lipitor -) 20 mg PO HS [facility] Last Admin: 04/19/18 21:07 Dose: 20 mg Chlorhexidine Gluconate (Hibiclens For Decolonization -) 1 applic TP HS [facility] Last Admin: 04/19/18 21:11 Dose: 1 applic Clonazepam (Klonopin -) 0.25 mg PO Q12H PRN PRN Reason: ANXIETY Last Admin: 04/19/18 21:06 Dose: 0.25 mg Cyclobenzaprine HCl (Flexeril -) 5 mg PO BID [facility] Last Admin: 04/19/18 21:16 Dose: 5 mg Docusate Sodium (Colace -) 100 mg PO TID [facility] Last Admin: 04/19/18 21:07 Dose: 100 mg Mupirocin (Bactroban Ointment (For Decolonization) -) 1 applic NS BID [facility] Stop: 04/22/18 21:59 Last Admin: 04/19/18 11:41 Dose: 1 applic Ondansetron HCl (Zofran Injection) 4 mg IVPUSH Q6H PRN PRN Reason: NAUSEA AND/OR VOMITING Oxycodone HCl (Roxicodone -) 5 mg PO Q3H PRN PRN Reason: PAIN LEVEL 1-5 Last Admin: 04/19/18 15:20 Dose: 5 mg Oxycodone HCl (Roxicodone -) 10 mg PO Q3H PRN PRN Reason: PAIN LEVEL 6-10 Last Admin: 04/19/18 05:39 Dose: 10 mg Oxycodone HCl (Oxycontin -) 10 mg PO BID [facility] Stop: 04/20/18 19:15 Last Admin: 04/19/18 21:07 Dose: 10 mg Polyethylene Glycol (Miralax (For Daily Use) -) 17 gm PO BID [facility] Last Admin: 04/19/18 21:09 Dose: 17 grams Home Medications Medication Instructions Recorded Aspirin [ASA -] 325 mg PO DAILY 04/13/18 Atorvastatin Ca [Lipitor] 20 mg PO HS 04/13/18 [place]-3 Fatty Acids/Fish Oil [Fish 1 each PO DAILY 04/13/18 Oil 1,000 mg Capsule] clonazePAM [Klonopin -] 0.25 mg PO PRN PRN 04/13/18 Multivitamin/Iron/Folic Acid 1 each PO DAILY 04/17/18 [Centrum Adults Tablet] Metoprolol Succinate 25 mg PO DAILY 04/18/18 Prednisone 10 mg PO BID 04/18/18 clonazePAM [Klonopin -] 0.5 mg PO BID 04/18/18 ASSESSMENT/PLAN: Pt. is a 57 y.o. M w. PMHx. of HLD, Spinal Surgery(2008), CAD(s/p stent in 2012) , presents s/p L3-L4 revision laminectomy; L3,L4,L5 laminectomy; L5, S1 partial corpectomies, and L4-S1 PLSIF. #Musculoskeletal -s/p spinal surgery POD#1 started Flexeril 5mg BID c/w Oxycontin 10mg BID LOTTIE c/w oxycodone 5mg and 10mg Q3H PRN c/w Incentive Spirometer Physical Therapy Neuro checks Q Shift #Cardiology -CAD Hold Aspirin 325mg- resume per Ortho -HLD c/w Atorvastatin 20mg #Psychiatry -Anxiety c/w Clonazepam 0.25mg PRN #Gastroenterology -Nausea Zofran 4mg Q6H PRN #F/E/N -D5-NS @ 100ml/hr -monitor electrolytes and replete as needed -NPO until passing flatus #Dvt. Ppx. -Mechanical Ppx. ONLY -SCDs Dispo: We will continue to follow the patient. Thank you for this consultative opportunity.
--- NOTE | 2018-04-19 22:42 | PN ---
Physical Exam: SUBJECTIVE: Patient seen and examined. No acute events overnight. Pt. refused PT @ 2:30pm yesterday 2/2 pain. Pt. endorses that Tylenol is the medication that works best in managing his pain. Pt. has not passed gas or stool. OBJECTIVE: Vital Signs Period Temp Pulse Resp BP Sys/Reyez Pulse Ox Last 24 Hr 97.5 F-98.8 F 82-102 17-21 105-134/62-77 97-99 GENERAL: The patient is awake, alert, and fully oriented, in no acute distress. EYES: sclera anicteric, conjunctiva clear. No ptosis. ENT: Ears normal, nares patent, moist mucous membranes. NECK: Trachea midline, full range of motion, supple. LUNGS: Breath sounds equal, clear to auscultation bilaterally, no wheezes, no crackles, no accessory muscle use. HEART: Regular rate and rhythm, S1, S2 without murmur ABDOMEN: Soft, nontender, nondistended, normoactive bowel sounds, no guarding, no rebound EXTREMITIES: 2+ dorsal pedal pulses, no calf tenderness, 5/5 muscle strength in all extremities, warm, well-perfused, no edema. NEUROLOGICAL: Normal speech, gait not observed. PSYCH: Normal mood, normal affect. SKIN: Warm, dry, normal turgor, no rashes or lesions noted Laboratory Results - last 24 hr 04/19/18 04/19/18 08:00 08:00 WBC 15.0 H RBC 4.00 Hgb 12.0 Hct 36.0 MCV 90.1 MCH 29.9 MCHC 33.2 RDW 13.6 Plt Count 172 MPV 8.3 Absolute Neuts (auto) 12.1 H Neutrophils % 80.7 Lymphocytes % 7.7 L Monocytes % 10.8 H Eosinophils % 0.6 D Basophils % 0.2 Nucleated RBC % 0 Sodium 138 Potassium 3.6 Chloride 104 Carbon Dioxide 29 Anion Gap 6 L BUN 10 Creatinine 0.8 Creat Clearance w eGFR > 60 Random Glucose 121 H Calcium 7.5 L Total Bilirubin 1.4 H AST 44 H ALT 31 Alkaline Phosphatase 70 Total Protein 5.2 L Albumin 2.8 L Active Medications Current Medications Acetaminophen (Ofirmev Injection -) 1,000 mg IVPB Q6H PRN PRN Reason: PAIN LEVEL 7 - 10 Last Admin: 04/19/18 19:03 Dose: 1,000 mg Atorvastatin Calcium (Lipitor -) 20 mg PO HS [facility] Last Admin: 04/19/18 21:07 Dose: 20 mg Chlorhexidine Gluconate (Hibiclens For Decolonization -) 1 applic TP HS [facility] Last Admin: 04/19/18 21:11 Dose: 1 applic Clonazepam (Klonopin -) 0.25 mg PO Q12H PRN PRN Reason: ANXIETY Last Admin: 04/19/18 21:06 Dose: 0.25 mg Cyclobenzaprine HCl (Flexeril -) 5 mg PO BID [facility] Last Admin: 04/19/18 21:16 Dose: 5 mg Docusate Sodium (Colace -) 100 mg PO TID [facility] Last Admin: 04/19/18 21:07 Dose: 100 mg Mupirocin (Bactroban Ointment (For Decolonization) -) 1 applic NS BID [facility] Stop: 04/22/18 21:59 Last Admin: 04/19/18 11:41 Dose: 1 applic Ondansetron HCl (Zofran Injection) 4 mg IVPUSH Q6H PRN PRN Reason: NAUSEA AND/OR VOMITING Oxycodone HCl (Roxicodone -) 5 mg PO Q3H PRN PRN Reason: PAIN LEVEL 1-5 Last Admin: 04/19/18 15:20 Dose: 5 mg Oxycodone HCl (Roxicodone -) 10 mg PO Q3H PRN PRN Reason: PAIN LEVEL 6-10 Last Admin: 04/19/18 05:39 Dose: 10 mg Oxycodone HCl (Oxycontin -) 10 mg PO BID [facility] Stop: 04/20/18 19:15 Last Admin: 04/19/18 21:07 Dose: 10 mg Polyethylene Glycol (Miralax (For Daily Use) -) 17 gm PO BID [facility] Last Admin: 04/19/18 21:09 Dose: 17 grams Home Medications Medication Instructions Recorded Aspirin [ASA -] 325 mg PO DAILY 04/13/18 Atorvastatin Ca [Lipitor] 20 mg PO HS 04/13/18 [place]-3 Fatty Acids/Fish Oil [Fish 1 each PO DAILY 04/13/18 Oil 1,000 mg Capsule] clonazePAM [Klonopin -] 0.25 mg PO PRN PRN 04/13/18 Multivitamin/Iron/Folic Acid 1 each PO DAILY 04/17/18 [Centrum Adults Tablet] Metoprolol Succinate 25 mg PO DAILY 04/18/18 Prednisone 10 mg PO BID 04/18/18 clonazePAM [Klonopin -] 0.5 mg PO BID 04/18/18 ASSESSMENT/PLAN: Pt. is a 57 y.o. M w. PMHx. of HLD, Spinal Surgery(2008), CAD(s/p stent in 2012) , presents s/p L3-L4 revision laminectomy; L3,L4,L5 laminectomy; L5, S1 partial corpectomies, and L4-S1 PLSIF. #Musculoskeletal -s/p spinal surgery POD#2 started Flexeril 5mg BID c/w Oxycontin 10mg BID LOTTIE c/w oxycodone 5mg and 10mg Q3H PRN c/w Incentive Spirometer Physical Therapy Neuro checks Q Shift #Cardiology -CAD Hold Aspirin 325mg- resume per Ortho -HLD c/w Atorvastatin 20mg #Psychiatry -Anxiety c/w Clonazepam 0.25mg PRN #Gastroenterology -Nausea Zofran 4mg Q6H PRN -Constipation Miralax BID #F/E/N -D5-NS @ 100ml/hr -monitor electrolytes and replete as needed -NPO until passing flatus #Dvt. Ppx. -Mechanical Ppx. ONLY -SCDs #Dispo Pt. walked 65 ft. with PT discharge planning Visit type - Emergency Visit Emergency Visit: No - New Patient This patient is new to me today: No - Critical Care Critical Care patient: Yes Total Critical Care Time (in minutes): 32 Critical Care Statement: The care of this patient involved high complexity decision making to prevent further life threatening deterioration of the patient 's condition and/or to evaluate & treat vital organ system(s) failure or risk of failure. - Discharge Referral Referred to [facility] No
[2018-04-19] MEDS ORDERED: PT OWN MED DRAWER 7, Y5N ONE (23:14)
[2018-04-19] MEDS ORDERED: ONDANSETRON 4 MG/2 ML VIAL IVPUSH PRN (23:23)
[2018-04-19] MEDS ORDERED: oxyCODONE HCL 5 MG TABLET PO PRN ×2 (23:23)
[2018-04-20] MEDS: ACETAMINOPHEN 1000 MG/100 ML VIAL (NON FORMULARY) IVPB PRN ×2 (00:10→12:23)
[2018-04-20] MEDS ORDERED: MELATONIN 5 MG TABLETS PO ONE (01:31)
[2018-04-20] MEDS: DOCUSATE SODIUM 100 MG CAPSULE (FP) PO SCH ×3 (05:50→22:35)
[2018-04-20 07:14] LABS: BASO % 0.2 % (0-2.0); EOS % 1.6 % (0-4.5); HEMATOCRIT 33.4 % (35.4-49); HEMOGLOBIN 11.2 GM/dL (11.7-16.9); LYMPH % 10.9 % (8-40); MCH 30.1 pg (25.7-33.7); MCHC 33.5 g/dl (32.0-35.9); MEAN CELL VOLUME 89.9 fl (80-96); MEAN PLT VOLUME 8.2 fl (7.5-11.1); MONO % 8.7 % (3.8-10.2); NEUT % 78.6 % (42.8-82.8); PLATELET COUNT 171 K/MM3 (134-434); RBC 3.72 M/mm3 (4.00-5.60); RDW 13.6 % (11.9-15.9); WHITE BLOOD COUNT 12.3 K/mm3 (4.0-10.0)
[2018-04-20] MEDS: DEXTROSE 5%-NORMAL SALINE 1,000 ML IV SCH (07:29)
[2018-04-20] MEDS: MUPIROCIN 2% TOPICAL OINTMENT FOR DECOLONIZATION NS SCH (07:29)
[2018-04-20 07:42] LABS: ALBUMIN 2.5 g/dl (3.4-5.0); ALK PHOS 101 U/L (45-117); ANION GAP 7 MMOL/L (8-16); BLOOD UREA NITROGEN 12 mg/dL (7-18); CALCIUM 7.2 mg/dL (8.5-10.1); CHLORIDE 103 mmol/L (98-107); CO2 27 mmol/L (21-32); CREATININE 0.7 mg/dL (0.55-1.3); GLUCOSE,RANDOM 104 mg/dL (74-106); POTASSIUM 3.7 mmol/L (3.5-5.1); SGOT/AST 72 U/L (15-37); SGPT/ALT 72 U/L (13-61); SODIUM 137 mmol/L (136-145); TOT PROT 5.2 g/dl (6.4-8.2)
[2018-04-20] MEDS: clonazePAM 0.5 MG TABLET PO PRN ×2 (09:42→22:34)
[2018-04-20] MEDS ORDERED: oxyCODONE HCL 10 MG SUSTAINED ACTING TABLET PO SCH (10:00)
[2018-04-20] MEDS: CYCLOBENZAPRINE HCL 10 MG TABLET (FP) PO SCH ×2 (11:16→22:35)
[2018-04-20] MEDS: POLYETHYLENE GLYCOL 3350 119 GM BTL PO SCH ×2 (11:19→22:37)
[2018-04-20] MEDS: MORPHINE SULFATE 2 MG/ML VIAL IVPUSH PRN (15:13)
[2018-04-20] MEDS: SENNOSIDES 8.6MG TABLET (FP) PO SCH ×2 (15:14→22:36)
--- NOTE | 2018-04-20 16:58 | EKG ---
Test Reason : Blood Pressure : / mmHG Vent. Rate : 089 BPM Atrial Rate : 089 BPM P-R Int : 136 ms QRS Dur : 084 ms QT Int : 356 ms P-R-T Axes : 039 019 023 degrees QTc Int : 433 ms NORMAL SINUS RHYTHM POSSIBLE LEFT ATRIAL ENLARGEMENT T WAVE ABNORMALITY, CONSIDER ANTERIOR ISCHEMIA ABNORMAL ECG NO PREVIOUS ECGS AVAILABLE Confirmed by ЕКАТЕРИНА SOUSA, CAROLYN ([id number]) on 04/20/2018 4:58:21 PM Referred By: Clovis Pickering Confirmed By:CAROLYN WILLAMS MD
[2018-04-20] MEDS ORDERED: GLYCERIN 1 RECTAL SUPPOSITORY, ADULT RC ONE (17:00)
[2018-04-20] MEDS: traMADol HCL 50 MG TABLET PO PRN (17:00)
[2018-04-20] MEDS: ACETAMINOPHEN 325 MG TABLET (FP) PO PRN ×2 (17:44→22:36)
--- NOTE | 2018-04-20 17:47 | PN ---
Physical Exam: SUBJECTIVE: Patient seen and examined. Passing gas, tolerating clear liquids. Pt. endorses b/l thigh burning sensation. Pt. endorses increased urinary urgency compared to baseline but less than POD# 1. Pt. denies numbness, CP, SOB , nausea or weakness. OBJECTIVE: Vital Signs Period Temp Pulse Resp BP Sys/Reyez Pulse Ox Last 24 Hr 97.6 F-99.6 F 90-101 18-21 117-136/63-83 97 GENERAL: The patient is awake, alert, and fully oriented, in no acute distress. HEAD: Normal with no signs of trauma. EYES: PERRL, extraocular movements intact, sclera anicteric, conjunctiva clear. No ptosis. ENT: Ears normal, nares patent, oropharynx clear without exudates, moist mucous membranes. NECK: Trachea midline, full range of motion, supple. LUNGS: Breath sounds equal, clear to auscultation bilaterally, no wheezes, no crackles, no accessory muscle use. HEART: Regular rate and rhythm, S1, S2 without murmur, rub or gallop. ABDOMEN: Soft, nontender, nondistended, normoactive bowel sounds, no guarding, no rebound, no hepatosplenomegaly, no masses. EXTREMITIES: 2+ pulses, warm, well-perfused, no edema. NEUROLOGICAL: Cranial nerves II through XII grossly intact. Normal speech, gait not observed. PSYCH: Normal mood, normal affect. SKIN: Warm, dry, normal turgor, no rashes or lesions noted Laboratory Results - last 24 hr 04/20/18 04/20/18 06:00 06:00 WBC 12.3 H RBC 3.72 L Hgb 11.2 L Hct 33.4 L MCV 89.9 MCH 30.1 MCHC 33.5 RDW 13.6 Plt Count 171 MPV 8.2 Absolute Neuts (auto) 9.7 H Neutrophils % 78.6 Lymphocytes % 10.9 D Monocytes % 8.7 Eosinophils % 1.6 D Basophils % 0.2 Nucleated RBC % 0 Sodium 137 Potassium 3.7 Chloride 103 Carbon Dioxide 27 Anion Gap 7 L BUN 12 Creatinine 0.7 Creat Clearance w eGFR > 60 Random Glucose 104 Calcium 7.2 L Total Bilirubin 1.0 AST 72 H ALT 72 H Alkaline Phosphatase 101 Total Protein 5.2 L Albumin 2.5 L Active Medications Current Medications Acetaminophen (Tylenol -) 650 mg PO DAILY PRN PRN Reason: Fever Or Pain Last Admin: 04/20/18 17:44 Dose: 650 mg Atorvastatin Calcium (Lipitor -) 20 mg PO HS [facility] Clonazepam (Klonopin -) 0.25 mg PO Q12H PRN PRN Reason: ANXIETY Last Admin: 04/20/18 09:42 Dose: 0.25 mg Cyclobenzaprine HCl (Flexeril -) 5 mg PO BID [facility] Last Admin: 04/20/18 11:16 Dose: 5 mg Docusate Sodium (Colace -) 100 mg PO TID [facility] Last Admin: 04/20/18 15:14 Dose: 100 mg Morphine Sulfate (Morphine Sulfate) 1 mg IVPUSH Q6H PRN PRN Reason: PAIN LEVEL 7 - 10 Last Admin: 04/20/18 15:13 Dose: 1 mg Ondansetron HCl (Zofran Injection) 4 mg IVPUSH Q6H PRN PRN Reason: NAUSEA AND/OR VOMITING Oxycodone HCl (Roxicodone -) 5 mg PO Q3H PRN PRN Reason: PAIN LEVEL 1-5 Oxycodone HCl (Roxicodone -) 10 mg PO Q3H PRN PRN Reason: PAIN LEVEL 6-10 Last Admin: 04/20/18 08:34 Dose: 10 mg Oxycodone HCl (Oxycontin -) 10 mg PO BID [facility] Stop: 04/20/18 19:15 Last Admin: 04/20/18 12:22 Dose: Not Given Polyethylene Glycol (Miralax (For Daily Use) -) 17 gm PO BID [facility] Last Admin: 04/20/18 11:19 Dose: 17 grams Senna (Senna -) 1 tab PO BID [facility] Last Admin: 04/20/18 15:14 Dose: 1 tab Tramadol HCl (Ultram -) 25 mg PO Q6H PRN PRN Reason: PAIN LEVEL 6-10 Last Admin: 04/20/18 17:00 Dose: 25 mg Home Medications Medication Instructions Recorded Aspirin [ASA -] 325 mg PO DAILY 04/13/18 Atorvastatin Ca [Lipitor] 20 mg PO HS 04/13/18 [place]-3 Fatty Acids/Fish Oil [Fish 1 each PO DAILY 04/13/18 Oil 1,000 mg Capsule] clonazePAM [Klonopin -] 0.25 mg PO PRN PRN 04/13/18 Multivitamin/Iron/Folic Acid 1 each PO DAILY 04/17/18 [Centrum Adults Tablet] Metoprolol Succinate 25 mg PO DAILY 04/18/18 Prednisone 10 mg PO BID 04/18/18 clonazePAM [Klonopin -] 0.5 mg PO BID 04/18/18 ASSESSMENT/PLAN: Pt. is a 57 y.o. M w. PMHx. of HLD, Spinal Surgery(2008), CAD(s/p stent in 2012) , presents s/p L3-L4 revision laminectomy; L3,L4,L5 laminectomy; L5, S1 partial corpectomies, and L4-S1 PLSIF. #Musculoskeletal -s/p spinal surgery POD#3 decreased Tylenol to PO 650mg Daily PRN- avoid Tylenol as LFTs are trending up; f/u CMP Morphine 1mg Q6H- maximum 2 doses started Tramadol 25mg Q6H PRN started Flexeril 5mg BID c/w Oxycontin 10mg BID [facility]OTTIE c/w oxycodone 5mg and 10mg Q3H PRN c/w Incentive Spirometer Physical Therapy Neuro checks Q Shift #Cardiology -CAD Hold Aspirin 325mg- resume per Ortho -HLD c/w Atorvastatin 20mg #Psychiatry -Anxiety c/w Clonazepam 0.25mg Q12H PRN #Gastroenterology -Nausea Zofran 4mg Q6H PRN -Constipation Glycerin Suppository x 2 Miralax BID Senna BID Colace 100mg TID #F/E/N -D/C IVF encourage PO intake -monitor electrolytes and replete as needed -NPO until passing flatus #Dvt. Ppx. -Mechanical Ppx. ONLY -SCDs #Dispo Pt. walked 80 ft. with PT discharge planning
--- NOTE | 2018-04-20 19:26 | PN ---
Teaching Attending Note Name of Resident: Clovis Barron ATTENDING PHYSICIAN STATEMENT I saw and evaluated the patient. I reviewed the resident's note and discussed the case with the resident. I agree with the resident's findings and plan as documented. SUBJECTIVE: Patient is feeling better today , but continues to have pain. OBJECTIVE: Vital Signs Temperature 99.1 F 04/20/18 17:17 Pulse Rate 94 H 04/20/18 17:17 Respiratory Rate 20 04/20/18 17:17 Blood Pressure 129/63 04/20/18 17:17 O2 Sat by Pulse Oximetry (%) 97 04/20/18 09:00 GENERAL: The patient is awake, alert, and fully oriented, in acute distress 2/2 to urinary urgency HEAD: Normal with no signs of trauma. EYES: PERRL, extraocular movements intact, sclera anicteric, conjunctiva clear. No ptosis. NECK: Trachea midline, full range of motion, supple. LUNGS: Breath sounds equal, clear to auscultation bilaterally, no wheezes, no crackles, no accessory muscle use. HEART: Regular rate and rhythm, S1, S2 without murmur, rub or gallop. ABDOMEN: firm, nontender, distended, normoactive bowel sounds, dull to percussion EXTREMITIES: 5/5 muscle strength throughout all extremities, sensation intact, 2 + dorsal pedal pulses, no edema. NEUROLOGICAL: exam per PSYCH: Normal mood, normal affect for the situation SKIN: Warm, dry, normal turgor, no rashes or lesions noted CBCD WBC 12.3 K/mm3 (4.0-10.0) H 04/20/18 06:00 RBC 3.72 M/mm3 (4.00-5.60) L 04/20/18 06:00 Hgb 11.2 GM/dL (11.7-16.9) L 04/20/18 06:00 Hct 33.4 % (35.4-49) L 04/20/18 06:00 MCV 89.9 fl (80-96) 04/20/18 06:00 MCHC 33.5 g/dl (32.0-35.9) 04/20/18 06:00 RDW 13.6 % (11.9-15.9) 04/20/18 06:00 Plt Count 171 K/MM3 (134-434) 04/20/18 06:00 MPV 8.2 fl (7.5-11.1) 04/20/18 06:00 CMP Sodium 137 mmol/L (136-145) 04/20/18 06:00 Potassium 3.7 mmol/L (3.5-5.1) 04/20/18 06:00 Chloride 103 mmol/L (98-107) 04/20/18 06:00 Carbon Dioxide 27 mmol/L (21-32) 04/20/18 06:00 Anion Gap 7 MMOL/L (8-16) L 04/20/18 06:00 BUN 12 mg/dL (7-18) 04/20/18 06:00 Creatinine 0.7 mg/dL (0.55-1.3) 04/20/18 06:00 Creat Clearance w eGFR > 60 (>60) 04/20/18 06:00 Random Glucose 104 mg/dL (74-106) 04/20/18 06:00 Calcium 7.2 mg/dL (8.5-10.1) L 04/20/18 06:00 Total Bilirubin 1.0 mg/dL (0.2-1) 04/20/18 06:00 AST 72 U/L (15-37) H 04/20/18 06:00 ALT 72 U/L (13-61) H 04/20/18 06:00 Alkaline Phosphatase 101 U/L (45-117) 04/20/18 06:00 Total Protein 5.2 g/dl (6.4-8.2) L 04/20/18 06:00 Albumin 2.5 g/dl (3.4-5.0) L 04/20/18 06:00 Current Medications Generic Name Dose Route Start Last Admin Trade Name Freq PRN Reason Stop Dose Admin Acetaminophen 650 mg 04/20/18 15:44 04/20/18 17:44 Tylenol - PO 650 mg DAILY PRN Administration Fever Or Pain Atorvastatin Calcium 20 mg 04/20/18 22:00 Lipitor - PO HS [facility] Clonazepam 0.25 mg 04/19/18 17:39 04/20/18 09:42 Klonopin - PO 0.25 mg Q12H PRN Administration ANXIETY Cyclobenzaprine HCl 5 mg 04/20/18 10:00 04/20/18 11:16 Flexeril - PO 5 mg BID [facility] Administration Docusate Sodium 100 mg 04/20/18 06:00 04/20/18 15:14 Colace - PO 100 mg TID [facility] Administration Morphine Sulfate 1 mg 04/20/18 12:09 04/20/18 15:13 Morphine Sulfate IVPUSH 1 mg Q6H PRN Administration PAIN LEVEL 7 - 10 Ondansetron HCl 4 mg 04/19/18 23:23 Zofran Injection IVPUSH Q6H PRN NAUSEA AND/OR VOMITING Oxycodone HCl 5 mg 04/19/18 23:23 Roxicodone - PO Q3H PRN PAIN LEVEL 1-5 Oxycodone HCl 10 mg 04/19/18 23:23 04/20/18 08:34 Roxicodone - PO 10 mg Q3H PRN Administration PAIN LEVEL 6-10 Polyethylene Glycol 17 gm 04/19/18 22:00 04/20/18 11:19 Miralax (For Daily Use) - PO 17 grams BID [facility] Administration Senna 1 tab 04/20/18 13:30 04/20/18 15:14 Senna - PO 1 tab BID [facility] Administration Tramadol HCl 25 mg 04/20/18 15:35 04/20/18 17:00 Ultram - PO 25 mg Q6H PRN Administration PAIN LEVEL 6-10 Home Medications Medication Instructions Recorded Aspirin [ASA -] 325 mg PO DAILY 04/13/18 Atorvastatin Ca [Lipitor] 20 mg PO HS 04/13/18 [place]-3 Fatty Acids/Fish Oil [Fish 1 each PO DAILY 04/13/18 Oil 1,000 mg Capsule] clonazePAM [Klonopin -] 0.25 mg PO PRN PRN 04/13/18 Multivitamin/Iron/Folic Acid 1 each PO DAILY 04/17/18 [Centrum Adults Tablet] Metoprolol Succinate 25 mg PO DAILY 04/18/18 Prednisone 10 mg PO BID 04/18/18 clonazePAM [Klonopin -] 0.5 mg PO BID 04/18/18 ASSESSMENT AND PLAN: Patient is a 57 yo male with PMHx of HLD, CAD s/p PCI, admitted for elective lumbar spinal surgery. # POD #4 Lumbar spinal stenosis s/p KHADRA/Revision laminectomy L3-L4/Laminectomy L4, L5, S1/L4-L5, L5-S1 PLIF/L5, S1 partial corpectomies/L3-L4 SPO/L3-S1 PISF. Passing flatus, no BM, good bowel sounds. Continue colace TID, add miralax. Encouraged to work with PT. #Bone marrow aspiration/Bone autograft/Bone allograft. #HLD on Fish oil is on hold since can increase the bleeding time, on Lipitor # Constipation on Miralax, senna, colace DVT Px: SCds
[2018-04-20] MEDS ORDERED: MORPHINE SULFATE 2 MG/ML VIAL IM ONE (19:49)
[2018-04-20] MEDS ORDERED: MORPHINE SULFATE 2 MG/ML VIAL IVPUSH ONE (20:02)
[2018-04-20] MEDS: ATORVASTATIN CA 20 MG TABLET (FP) PO SCH (22:36)
[2018-04-21] MEDS ORDERED: MELATONIN 5 MG TABLETS PO ONE (01:08)
[2018-04-21] MEDS: MORPHINE SULFATE 2 MG/ML VIAL IVPUSH PRN ×4 (04:42→21:08)
[2018-04-21] MEDS: DOCUSATE SODIUM 100 MG CAPSULE (FP) PO SCH ×3 (05:23→21:06)
[2018-04-21 08:21] LABS: HEMATOCRIT 32.6 % (35.4-49); MCH 30.5 pg (25.7-33.7); MCHC 33.8 g/dl (32.0-35.9); MEAN PLT VOLUME 8.3 fl (7.5-11.1); PLATELET COUNT 206 K/MM3 (134-434); RBC 3.63 M/mm3 (4.00-5.60); WHITE BLOOD COUNT 11.4 K/mm3 (4.0-10.0)
--- NOTE | 2018-04-21 08:26 | PN ---
Progress Note (short form) - Note Progress Note: POD 4 C/O incisional pain no leg pain Nuero status at base line Wound dry Abdomen distended non tender No ba as yet Plan: Increase pain management as discussed w/nurse. Pt mobilized DC planning.
[2018-04-21 08:31] LABS: ALBUMIN 2.6 g/dl (3.4-5.0); ALK PHOS 160 U/L (45-117); ANION GAP 11 MMOL/L (8-16); BILIRUBIN,TOTAL 0.8 mg/dL (0.2-1); BLOOD UREA NITROGEN 13 mg/dL (7-18); CALCIUM 7.5 mg/dL (8.5-10.1); CHLORIDE 101 mmol/L (98-107); CO2 27 mmol/L (21-32); CREATININE 0.6 mg/dL (0.55-1.3); GLUCOSE,RANDOM 108 mg/dL (74-106); PHOSPHOROUS 2.8 mg/dL (2.5-4.9); POTASSIUM 3.9 mmol/L (3.5-5.1); SGOT/AST 81 U/L (15-37); SGPT/ALT 90 U/L (13-61); SODIUM 139 mmol/L (136-145); TOT PROT 5.5 g/dl (6.4-8.2)
--- NOTE | 2018-04-21 09:06 | PN ---
Teaching Attending Note Name of Resident: Clovis Barron ATTENDING PHYSICIAN STATEMENT I saw and evaluated the patient. I reviewed the resident's note and discussed the case with the resident. I agree with the resident's findings and plan as documented. SUBJECTIVE: Patient is comfortable, feeling better. OBJECTIVE: Vital Signs Temperature 98.9 F 04/21/18 05:00 Pulse Rate 91 H 04/21/18 05:00 Respiratory Rate 20 04/21/18 05:00 Blood Pressure 122/74 04/21/18 05:00 O2 Sat by Pulse Oximetry (%) 97 04/20/18 21:00 GENERAL: The patient is awake, alert, and fully oriented, in acute distress 2/2 to urinary urgency HEAD: Normal with no signs of trauma. EYES: PERRL, extraocular movements intact, sclera anicteric, conjunctiva clear. No ptosis. NECK: Trachea midline, full range of motion, supple. LUNGS: Breath sounds equal, clear to auscultation bilaterally, no wheezes, no crackles, no accessory muscle use. HEART: Regular rate and rhythm, S1, S2 without murmur, rub or gallop. ABDOMEN: firm, nontender, distended, normoactive bowel sounds, dull to percussion EXTREMITIES: 5/5 muscle strength throughout all extremities, sensation intact, 2 + dorsal pedal pulses, warm, no edema. NEUROLOGICAL: as per PSYCH: Normal mood, normal affect for the situation SKIN: Warm, dry, normal turgor, no rashes or lesions noted CBCD WBC 11.4 K/mm3 (4.0-10.0) H 04/21/18 06:50 RBC 3.63 M/mm3 (4.00-5.60) L 04/21/18 06:50 Hgb 11.0 GM/dL (11.7-16.9) L 04/21/18 06:50 Hct 32.6 % (35.4-49) L 04/21/18 06:50 MCV 90.0 fl (80-96) 04/21/18 06:50 MCHC 33.8 g/dl (32.0-35.9) 04/21/18 06:50 RDW 13.0 % (11.9-15.9) 04/21/18 06:50 Plt Count 206 K/MM3 (134-434) D 04/21/18 06:50 MPV 8.3 fl (7.5-11.1) 04/21/18 06:50 CMP Sodium 139 mmol/L (136-145) 04/21/18 06:50 Potassium 3.9 mmol/L (3.5-5.1) 04/21/18 06:50 Chloride 101 mmol/L (98-107) 04/21/18 06:50 Carbon Dioxide 27 mmol/L (21-32) 04/21/18 06:50 Anion Gap 11 MMOL/L (8-16) 04/21/18 06:50 BUN 13 mg/dL (7-18) 04/21/18 06:50 Creatinine 0.6 mg/dL (0.55-1.3) 04/21/18 06:50 Creat Clearance w eGFR > 60 (>60) 04/21/18 06:50 Random Glucose 108 mg/dL (74-106) H 04/21/18 06:50 Calcium 7.5 mg/dL (8.5-10.1) L 04/21/18 06:50 Total Bilirubin 0.8 mg/dL (0.2-1) 04/21/18 06:50 AST 81 U/L (15-37) H 04/21/18 06:50 ALT 90 U/L (13-61) H 04/21/18 06:50 Alkaline Phosphatase 160 U/L (45-117) H 04/21/18 06:50 Total Protein 5.5 g/dl (6.4-8.2) L 04/21/18 06:50 Albumin 2.6 g/dl (3.4-5.0) L 04/21/18 06:50 Current Medications Generic Name Dose Route Start Last Admin Trade Name Freq PRN Reason Stop Dose Admin Atorvastatin Calcium 20 mg 04/20/18 22:00 04/20/18 22:36 Lipitor - PO 20 mg HS [facility]OTT[facility] Administration Clonazepam 0.25 mg 04/19/18 17:39 04/20/18 22:34 Klonopin - PO 0.25 mg Q12H PRN Administration ANXIETY Cyclobenzaprine HCl 5 mg 04/20/18 10:00 04/20/18 22:35 Flexeril - PO 5 mg BID [facility] Administration Docusate Sodium 100 mg 04/20/18 06:00 04/21/18 05:23 Colace - PO 100 mg TID [facility] Administration Morphine Sulfate 1 mg 04/20/18 12:09 04/21/18 04:42 Morphine Sulfate IVPUSH 1 mg Q6H PRN Administration PAIN LEVEL 7 - 10 Morphine Sulfate 2 mg 04/21/18 08:28 Morphine Sulfate IVPUSH Q4H PRN PAIN LEVEL 6-10 Ondansetron HCl 4 mg 04/19/18 23:23 04/21/18 02:48 Zofran Injection IVPUSH 4 mg Q6H PRN Administration NAUSEA AND/OR VOMITING Oxycodone HCl 5 mg 04/19/18 23:23 04/21/18 05:22 Roxicodone - PO 5 mg Q3H PRN Administration PAIN LEVEL 1-5 Oxycodone HCl 10 mg 04/19/18 23:23 04/20/18 08:34 Roxicodone - PO 10 mg Q3H PRN Administration PAIN LEVEL 6-10 Polyethylene Glycol 17 gm 04/19/18 22:00 04/20/18 22:37 Miralax (For Daily Use) - PO 17 grams BID [facility] Administration Senna 1 tab 04/20/18 13:30 04/20/18 22:36 Senna - PO 1 tab BID [facility] Administration Tramadol HCl 25 mg 04/20/18 15:35 04/20/18 17:00 Ultram - PO 25 mg Q6H PRN Administration PAIN LEVEL 6-10 Home Medications Medication Instructions Recorded Aspirin [ASA -] 325 mg PO DAILY 04/13/18 Atorvastatin Ca [Lipitor] 20 mg PO HS 04/13/18 [place]-3 Fatty Acids/Fish Oil [Fish 1 each PO DAILY 04/13/18 Oil 1,000 mg Capsule] clonazePAM [Klonopin -] 0.25 mg PO PRN PRN 04/13/18 Multivitamin/Iron/Folic Acid 1 each PO DAILY 04/17/18 [Centrum Adults Tablet] Metoprolol Succinate 25 mg PO DAILY 04/18/18 Prednisone 10 mg PO BID 04/18/18 clonazePAM [Klonopin -] 0.5 mg PO BID 04/18/18 ASSESSMENT AND PLAN: Patient is a 57 yo male with PMHx of HLD, CAD s/p PCI, admitted for elective lumbar spinal surgery. # POD #5 Lumbar spinal stenosis s/p KHADRA/Revision laminectomy L3-L4/Laminectomy L4, L5, S1/L4-L5, L5-S1 PLIF/L5, S1 partial corpectomies/L3-L4 SPO/L3-S1 PISF. Passing flatus, no BM, good bowel sounds. Continue colace TID, add [email or web address] to continue . Discharge plan as per #Bone marrow aspiration/Bone autograft/Bone allograft. #HLD on Fish oil is on hold since can increase the bleeding time, on Lipitor # Constipation on Miralax, senna, colace DVT Px: SCds Discharge plan as per
[2018-04-21] MEDS: SENNOSIDES 8.6MG TABLET (FP) PO SCH ×2 (09:55→21:08)
[2018-04-21] MEDS: CYCLOBENZAPRINE HCL 10 MG TABLET (FP) PO SCH ×2 (09:55→21:06)
[2018-04-21] MEDS: POLYETHYLENE GLYCOL 3350 119 GM BTL PO SCH ×2 (09:56→21:08)
[2018-04-21] MEDS: traMADol HCL 50 MG TABLET PO PRN (11:41)
--- NOTE | 2018-04-21 14:20 | PN ---
Physical Exam: SUBJECTIVE: Patient seen and examined. Pt. was nauseous overnight, given Zofran. No BM. Pt. states that he is in pain and given oxycodone in addition to morphine to adequate effect. Pain in thighs described as a deep thigh ache. Pt. elected to have glycerin suppository in the morning instead of last night. Pt. endorses baseline leg numbness. OBJECTIVE: Vital Signs Period Temp Pulse Resp BP Sys/Reyez Pulse Ox Last 24 Hr 97.4 F-99.6 F 85-96 18-20 111-135/63-79 97 GENERAL: The patient is awake, alert, and fully oriented, in no acute distress. EYES: sclera anicteric, conjunctiva clear. No ptosis. ENT: Ears normal, nares patent, moist mucous membranes. LUNGS: Breath sounds equal, clear to auscultation bilaterally, no wheezes, no crackles, no accessory muscle use. HEART: Regular rate and rhythm, S1, S2 without murmur, rub or gallop. ABDOMEN: Soft, nontender, nondistended, normoactive bowel sounds, no guarding, no rebound, dull to percussion EXTREMITIES: 2+ dorsal pedal pulses, warm, well-perfused, no calf tenderness, no edema, moves all limbs spontaneously PSYCH: Normal mood, normal affect. SKIN: Warm, dry, normal turgor, no rashes or lesions noted Laboratory Results - last 24 hr 04/21/18 04/21/18 06:50 06:50 WBC 11.4 H RBC 3.63 L Hgb 11.0 L Hct 32.6 L MCV 90.0 MCH 30.5 MCHC 33.8 RDW 13.0 Plt Count 206 D MPV 8.3 Sodium 139 Potassium 3.9 Chloride 101 Carbon Dioxide 27 Anion Gap 11 BUN 13 Creatinine 0.6 Creat Clearance w eGFR > 60 Random Glucose 108 H Calcium 7.5 L Phosphorus 2.8 Magnesium 2.0 Total Bilirubin 0.8 AST 81 H ALT 90 H Alkaline Phosphatase 160 H Total Protein 5.5 L Albumin 2.6 L Active Medications Current Medications Atorvastatin Calcium (Lipitor -) 20 mg PO HS [facility] Last Admin: 04/20/18 22:36 Dose: 20 mg Clonazepam (Klonopin -) 0.25 mg PO Q12H PRN PRN Reason: ANXIETY Last Admin: 04/20/18 22:34 Dose: 0.25 mg Cyclobenzaprine HCl (Flexeril -) 5 mg PO BID [facility] Last Admin: 04/21/18 09:55 Dose: 5 mg Docusate Sodium (Colace -) 100 mg PO TID [facility] Last Admin: 04/21/18 14:16 Dose: 100 mg Morphine Sulfate (Morphine Sulfate) 2 mg IVPUSH Q4H PRN PRN Reason: PAIN LEVEL 6-10 Last Admin: 04/21/18 09:15 Dose: 2 mg Ondansetron HCl (Zofran Injection) 4 mg IVPUSH Q6H PRN PRN Reason: NAUSEA AND/OR VOMITING Last Admin: 04/21/18 02:48 Dose: 4 mg Oxycodone HCl (Roxicodone -) 5 mg PO Q3H PRN PRN Reason: PAIN LEVEL 1-5 Last Admin: 04/21/18 05:22 Dose: 5 mg Oxycodone HCl (Roxicodone -) 10 mg PO Q3H PRN PRN Reason: PAIN LEVEL 6-10 Last Admin: 04/20/18 08:34 Dose: 10 mg Polyethylene Glycol (Miralax (For Daily Use) -) 17 gm PO BID [facility] Last Admin: 04/21/18 09:56 Dose: 17 grams Senna (Senna -) 1 tab PO BID [facility] Last Admin: 04/21/18 09:55 Dose: 1 tab Tramadol HCl (Ultram -) 25 mg PO Q6H PRN PRN Reason: PAIN LEVEL 6-10 Last Admin: 04/21/18 11:41 Dose: 25 mg Home Medications Medication Instructions Recorded Aspirin [ASA -] 325 mg PO DAILY 04/13/18 Atorvastatin Ca [Lipitor] 20 mg PO HS 04/13/18 [place]-3 Fatty Acids/Fish Oil [Fish 1 each PO DAILY 04/13/18 Oil 1,000 mg Capsule] clonazePAM [Klonopin -] 0.25 mg PO PRN PRN 04/13/18 Multivitamin/Iron/Folic Acid 1 each PO DAILY 04/17/18 [Centrum Adults Tablet] Metoprolol Succinate 25 mg PO DAILY 04/18/18 Prednisone 10 mg PO BID 04/18/18 clonazePAM [Klonopin -] 0.5 mg PO BID 04/18/18 ASSESSMENT/PLAN: Pt. is a 57 y.o. M w. PMHx. of HLD, Spinal Surgery(2008), CAD(s/p stent in 2012) , presents s/p L3-L4 revision laminectomy; L3,L4,L5 laminectomy; L5, S1 partial corpectomies, and L4-S1 PLSIF. #Musculoskeletal -s/p spinal surgery POD #4 d/c-ed Tylenol as LFTs are trending up; f/u CMP Increased Morphine to 2mg Q4H started Tramadol 25mg Q6H PRN started Flexeril 5mg BID c/w Oxycontin 10mg BID LOTTIE c/w oxycodone 5mg and 10mg Q3H PRN c/w Incentive Spirometer Physical Therapy Neuro checks Q Shift #Cardiology -CAD Hold Aspirin 325mg- resume per Ortho -HLD c/w Atorvastatin 20mg #Psychiatry -Anxiety c/w Clonazepam 0.25mg Q12H PRN #Gastroenterology -Nausea Zofran 4mg Q6H PRN -Constipation Glycerin Suppository x 2 Miralax BID Senna BID Colace 100mg TID #F/E/N -D/C IVF encourage PO intake -monitor electrolytes and replete as needed -NPO until passing flatus #Dvt. Ppx. -Mechanical Ppx. ONLY -SCDs #Dispo Pt. walked 80 ft. with PT discharge planning
[2018-04-21] MEDS ORDERED: GLYCERIN 1 RECTAL SUPPOSITORY, ADULT PR PRN (16:39)
[2018-04-21] MEDS: ATORVASTATIN CA 20 MG TABLET (FP) PO SCH (21:07)
[2018-04-22] MEDS: traMADol HCL 50 MG TABLET PO PRN (00:24)
[2018-04-22] MEDS: MORPHINE SULFATE 2 MG/ML VIAL IVPUSH PRN ×2 (05:35→09:09)
[2018-04-22] MEDS: DOCUSATE SODIUM 100 MG CAPSULE (FP) PO SCH ×2 (05:36→15:04)
--- NOTE | 2018-04-22 08:22 | PN ---
Progress Note (short form) - Note Progress Note: Vital Signs Temperature 98.5 F 04/22/18 05:00 Pulse Rate 95 H 04/22/18 05:00 Respiratory Rate 20 04/22/18 05:00 Blood Pressure 119/65 04/22/18 05:00 O2 Sat by Pulse Oximetry (%) 98 04/21/18 21:00 GENERAL: The patient is awake, alert, and fully oriented, in acute distress 2/2 to urinary urgency HEAD: Normal with no signs of trauma. EYES: PERRL, extraocular movements intact, sclera anicteric, conjunctiva clear. No ptosis. NECK: Trachea midline, full range of motion, supple. LUNGS: Breath sounds equal, clear to auscultation bilaterally, no wheezes, no crackles, no accessory muscle use. HEART: Regular rate and rhythm, S1, S2 without murmur, rub or gallop. ABDOMEN: firm, nontender, distended, normoactive bowel sounds, dull to percussion EXTREMITIES: 5/5 muscle strength throughout all extremities, sensation intact, 2 + dorsal pedal pulses, warm, no edema. NEUROLOGICAL: as per PSYCH: Normal mood, normal affect for the situation SKIN: Warm, dry, normal turgor, no rashes or lesions noted CBCD WBC 11.4 K/mm3 (4.0-10.0) H 04/21/18 06:50 RBC 3.63 M/mm3 (4.00-5.60) L 04/21/18 06:50 Hgb 11.0 GM/dL (11.7-16.9) L 04/21/18 06:50 Hct 32.6 % (35.4-49) L 04/21/18 06:50 MCV 90.0 fl (80-96) 04/21/18 06:50 MCHC 33.8 g/dl (32.0-35.9) 04/21/18 06:50 RDW 13.0 % (11.9-15.9) 04/21/18 06:50 Plt Count 206 K/MM3 (134-434) D 04/21/18 06:50 MPV 8.3 fl (7.5-11.1) 04/21/18 06:50 CMP Sodium 139 mmol/L (136-145) 04/21/18 06:50 Potassium 3.9 mmol/L (3.5-5.1) 04/21/18 06:50 Chloride 101 mmol/L (98-107) 04/21/18 06:50 Carbon Dioxide 27 mmol/L (21-32) 04/21/18 06:50 Anion Gap 11 MMOL/L (8-16) 04/21/18 06:50 BUN 13 mg/dL (7-18) 04/21/18 06:50 Creatinine 0.6 mg/dL (0.55-1.3) 04/21/18 06:50 Creat Clearance w eGFR > 60 (>60) 04/21/18 06:50 Random Glucose 108 mg/dL (74-106) H 04/21/18 06:50 Calcium 7.5 mg/dL (8.5-10.1) L 04/21/18 06:50 Total Bilirubin 0.8 mg/dL (0.2-1) 04/21/18 06:50 AST 81 U/L (15-37) H 04/21/18 06:50 ALT 90 U/L (13-61) H 04/21/18 06:50 Alkaline Phosphatase 160 U/L (45-117) H 04/21/18 06:50 Total Protein 5.5 g/dl (6.4-8.2) L 04/21/18 06:50 Albumin 2.6 g/dl (3.4-5.0) L 04/21/18 06:50 Current Medications Generic Name Dose Route Start Last Admin Trade Name Freq PRN Reason Stop Dose Admin Atorvastatin Calcium 20 mg 04/20/18 22:00 04/21/18 21:07 Lipitor - PO 20 mg HS LOTTIE Administration Clonazepam 0.25 mg 04/19/18 17:39 04/20/18 22:34 Klonopin - PO 0.25 mg Q12H PRN Administration ANXIETY Cyclobenzaprine HCl 5 mg 04/20/18 10:00 04/21/18 21:06 Flexeril - PO 5 mg BID [facility]OTT[facility] Administration Docusate Sodium 100 mg 04/20/18 06:00 04/22/18 05:36 Colace - PO Not Given TID LOTTIE Glycerin 2 each 04/21/18 16:39 04/21/18 18:10 Glycerin Suppository Adult - GA 2 each DAILY PRN Administration CONSTIPATION Morphine Sulfate 2 mg 04/21/18 08:28 04/22/18 05:35 Morphine Sulfate IVPUSH 2 mg Q4H PRN Administration PAIN LEVEL 6-10 Ondansetron HCl 4 mg 04/19/18 23:23 04/21/18 02:48 Zofran Injection IVPUSH 4 mg Q6H PRN Administration NAUSEA AND/OR VOMITING Oxycodone HCl 5 mg 04/19/18 23:23 04/21/18 05:22 Roxicodone - PO 5 mg Q3H PRN Administration PAIN LEVEL 1-5 Oxycodone HCl 10 mg 04/19/18 23:23 04/20/18 08:34 Roxicodone - PO 10 mg Q3H PRN Administration PAIN LEVEL 6-10 Polyethylene Glycol 17 gm 04/19/18 22:00 04/21/18 21:08 Miralax (For Daily Use) - PO Not Given BID LOTTIE Senna 1 tab 04/20/18 13:30 04/21/18 21:08 Senna - PO Not Given BID LOTTIE Tramadol HCl 25 mg 04/20/18 15:35 04/22/18 00:24 Ultram - PO 25 mg Q6H PRN Administration PAIN LEVEL 6-10 Home Medications Medication Instructions Recorded Aspirin [ASA -] 325 mg PO DAILY 04/13/18 Atorvastatin Ca [Lipitor] 20 mg PO HS 04/13/18 [place]-3 Fatty Acids/Fish Oil [Fish 1 each PO DAILY 04/13/18 Oil 1,000 mg Capsule] clonazePAM [Klonopin -] 0.25 mg PO PRN PRN 04/13/18 Multivitamin/Iron/Folic Acid 1 each PO DAILY 04/17/18 [Centrum Adults Tablet] Metoprolol Succinate 25 mg PO DAILY 04/18/18 Prednisone 10 mg PO BID 04/18/18 clonazePAM [Klonopin -] 0.5 mg PO BID 04/18/18 ASSESSMENT AND PLAN: Patient is a 57 yo male with PMHx of HLD, CAD s/p PCI, admitted for elective lumbar spinal surgery. # POD #6 Lumbar spinal stenosis s/p KHADRA/Revision laminectomy L3-L4/Laminectomy L4, L5, S1/L4-L5, L5-S1 PLIF/L5, S1 partial corpectomies/L3-L4 SPO/L3-S1 PISF. Passing flatus, no BM, good bowel sounds. Continue colace TID, add [email or web address].PT to continue . Discharge plan as per #Bone marrow aspiration/Bone autograft/Bone allograft. #HLD on Fish oil is on hold since can increase the bleeding time, on Lipitor # Constipation on Miralax, senna, colace DVT Px: SCds Discharge plan as per
[2018-04-22 08:29] LABS: ALBUMIN 2.5 g/dl (3.4-5.0); ALK PHOS 169 U/L (45-117); ANION GAP 10 MMOL/L (8-16); BILIRUBIN,TOTAL 0.6 mg/dL (0.2-1); BLOOD UREA NITROGEN 16 mg/dL (7-18); CALCIUM 7.7 mg/dL (8.5-10.1); CHLORIDE 99 mmol/L (98-107); CO2 27 mmol/L (21-32); CREATININE 0.7 mg/dL (0.55-1.3); GLUCOSE,RANDOM 98 mg/dL (74-106); MAGNESIUM 2.3 mg/dL (1.8-2.4); POTASSIUM 4.1 mmol/L (3.5-5.1); SGOT/AST 61 U/L (15-37); SGPT/ALT 75 U/L (13-61); SODIUM 136 mmol/L (136-145); TOT PROT 5.5 g/dl (6.4-8.2)
[2018-04-22] MEDS ORDERED: PT OWN MED DRAWER 7, Y5N ONE (08:52)
[2018-04-22] MEDS: SENNOSIDES 8.6MG TABLET (FP) PO SCH (09:10)
[2018-04-22] MEDS: CYCLOBENZAPRINE HCL 10 MG TABLET (FP) PO SCH (09:10)
[2018-04-22] MEDS: POLYETHYLENE GLYCOL 3350 119 GM BTL PO SCH (09:11)
--- NOTE | 2018-04-22 15:23 | DS ---
Physical Exam: SUBJECTIVE: Patient seen and examined Patient is feeling better with no acute distress, no shortness of breath, no nausea or vomiting. OBJECTIVE: Vital Signs Temperature 99.1 F 04/22/18 09:00 Pulse Rate 94 H 04/22/18 09:00 Respiratory Rate 18 04/22/18 09:00 Blood Pressure 135/69 04/22/18 09:00 O2 Sat by Pulse Oximetry (%) 98 04/22/18 09:00 PHYSICAL EXAM GENERAL: The patient is awake, alert, and fully oriented, in acute distress 2/2 to urinary urgency HEAD: Normal with no signs of trauma. EYES: PERRL, extraocular movements intact, sclera anicteric, conjunctiva clear. No ptosis. NECK: Trachea midline, full range of motion, supple. LUNGS: Breath sounds equal, clear to auscultation bilaterally, no wheezes, no crackles, no accessory muscle use. HEART: Regular rate and rhythm, S1, S2 without murmur, rub or gallop. ABDOMEN: firm, nontender, distended, normoactive bowel sounds, dull to percussion EXTREMITIES: 5/5 muscle strength throughout all extremities, sensation intact, 2 + dorsal pedal pulses, warm, no edema. NEUROLOGICAL: as per PSYCH: Normal mood, normal affect for the situation SKIN: Warm, dry, normal turgor, no rashes or lesions noted [facility]CD LABS WBC 11.4 K/mm3 (4.0-10.0) H 04/21/18 06:50 RBC 3.63 M/mm3 (4.00-5.60) L 04/21/18 06:50 Hgb 11.0 GM/dL (11.7-16.9) L 04/21/18 06:50 Hct 32.6 % (35.4-49) L 04/21/18 06:50 MCV 90.0 fl (80-96) 04/21/18 06:50 MCHC 33.8 g/dl (32.0-35.9) 04/21/18 06:50 RDW 13.0 % (11.9-15.9) 04/21/18 06:50 Plt Count 206 K/MM3 (134-434) D 04/21/18 06:50 MPV 8.3 fl (7.5-11.1) 04/21/18 06:50 CMP Sodium 136 mmol/L (136-145) 04/22/18 06:00 Potassium 4.1 mmol/L (3.5-5.1) 04/22/18 06:00 Chloride 99 mmol/L (98-107) 04/22/18 06:00 Carbon Dioxide 27 mmol/L (21-32) 04/22/18 06:00 Anion Gap 10 MMOL/L (8-16) 04/22/18 06:00 BUN 16 mg/dL (7-18) 04/22/18 06:00 Creatinine 0.7 mg/dL (0.55-1.3) 04/22/18 06:00 Creat Clearance w eGFR > 60 (>60) 04/22/18 06:00 Random Glucose 98 mg/dL (74-106) 04/22/18 06:00 Calcium 7.7 mg/dL (8.5-10.1) L 04/22/18 06:00 Total Bilirubin 0.6 mg/dL (0.2-1) 04/22/18 06:00 AST 61 U/L (15-37) H 04/22/18 06:00 ALT 75 U/L (13-61) H 04/22/18 06:00 Alkaline Phosphatase 169 U/L (45-117) H 04/22/18 06:00 Total Protein 5.5 g/dl (6.4-8.2) L 04/22/18 06:00 Albumin 2.5 g/dl (3.4-5.0) L 04/22/18 06:00 Laboratory Results - last 24 hr 04/22/18 06:00 Sodium 136 Potassium 4.1 Chloride 99 Carbon Dioxide 27 Anion Gap 10 BUN 16 Creatinine 0.7 Creat Clearance w eGFR > 60 Random Glucose 98 Calcium 7.7 L Phosphorus 4.0 Magnesium 2.3 Total Bilirubin 0.6 AST 61 H ALT 75 H Alkaline Phosphatase 169 H Total Protein 5.5 L Albumin 2.5 L Current Medications Generic Name Dose Route Start Last Admin Trade Name Freq PRN Reason Stop Dose Admin Atorvastatin Calcium 20 mg 04/20/18 22:00 04/21/18 21:07 Lipitor - PO 20 mg HS LOTTIE Administration Clonazepam 0.25 mg 04/19/18 17:39 04/20/18 22:34 Klonopin - PO 0.25 mg Q12H PRN Administration ANXIETY Cyclobenzaprine HCl 5 mg 04/20/18 10:00 04/22/18 09:10 Flexeril - PO 5 mg BID LOTTIE Administration Docusate Sodium 100 mg 04/20/18 06:00 04/22/18 15:04 Colace - PO 100 mg TID LOTTIE Administration Glycerin 2 each 04/21/18 16:39 04/21/18 18:10 Glycerin Suppository Adult - [place] 2 each DAILY PRN Administration CONSTIPATION Morphine Sulfate 2 mg 04/21/18 08:28 04/22/18 09:09 Morphine Sulfate IVPUSH 2 mg Q4H PRN Administration PAIN LEVEL 6-10 Ondansetron HCl 4 mg 04/19/18 23:23 04/21/18 02:48 Zofran Injection IVPUSH 4 mg Q6H PRN Administration NAUSEA AND/OR VOMITING Oxycodone HCl 5 mg 04/19/18 23:23 04/21/18 05:22 Roxicodone - PO 5 mg Q3H PRN Administration PAIN LEVEL 1-5 Oxycodone HCl 10 mg 04/19/18 23:23 04/20/18 08:34 Roxicodone - PO 10 mg Q3H PRN Administration PAIN LEVEL 6-10 Polyethylene Glycol 17 gm 04/19/18 22:00 04/22/18 09:11 Miralax (For Daily Use) - PO Not Given BID [facility] Senna 1 tab 04/20/18 13:30 04/22/18 09:10 Senna - PO 1 tab BID LOTTIE Administration Tramadol HCl 25 mg 04/20/18 15:35 04/22/18 00:24 Ultram - PO 25 mg Q6H PRN Administration PAIN LEVEL 6-10 Home Medications Medication Instructions Recorded Aspirin [ASA -] 325 mg PO DAILY 04/13/18 Atorvastatin Ca [Lipitor] 20 mg PO HS 04/13/18 [place]-3 Fatty Acids/Fish Oil [Fish 1 each PO DAILY 04/13/18 Oil 1,000 mg Capsule] clonazePAM [Klonopin -] 0.25 mg PO PRN PRN 04/13/18 Multivitamin/Iron/Folic Acid 1 each PO DAILY 04/17/18 [Centrum Adults Tablet] Metoprolol Succinate 25 mg PO DAILY 04/18/18 Prednisone 10 mg PO BID 04/18/18 clonazePAM [Klonopin -] 0.5 mg PO BID 04/18/18 HOSPITAL COURSE: Date of Admission:04/17/18 Date of Discharge: 04/22/18 Patient is a 57 yo male with PMHx of HLD, CAD s/p PCI, admitted for elective lumbar spinal surgery. # POD #6 Lumbar spinal stenosis s/p KHADRA/Revision laminectomy L3-L4/Laminectomy L4, L5, S1/L4-L5, L5-S1 PLIF/L5, S1 partial corpectomies/L3-L4 SPO/L3-S1 PISF. Had a BM without any difficulty , Continue colace TID, add miralax. OK to discharge the patient as per . Follow with Dr. Pickering's office within a week period. Do not lift anything heavy. Follow with 's structure. #Bone marrow aspiration/Bone autograft/Bone allograft. #HLD on Fish oil is on hold since can increase the bleeding time, DC Lipitor since LFTs are elevated. continue to drink 2 liter of fluid per day. follow with your transmission worker within a week. # Constipation on Miralax, senna, colace Minutes to complete discharge: 45 Discharge Summary Reason For Visit: LUMBAR SPINAL STENOSIS Current Active Problems Lumbar spinal stenosis (Acute) - Instructions - Home Medications Comprehensive Discharge Medication List: Ambulatory Orders Aspirin [ASA -] 325 mg PO DAILY 04/13/18 Atorvastatin Ca [Lipitor] 20 mg PO HS 04/13/18 [place]-3 Fatty Acids/Fish Oil [Fish Oil 1,000 mg Capsule] 1 each PO DAILY clonazePAM [Klonopin -] 0.25 mg PO PRN PRN 04/13/18 Multivitamin/Iron/Folic Acid [Centrum Adults Tablet] 1 each PO DAILY 04/17/18 Metoprolol Succinate 25 mg PO DAILY 04/18/18 Prednisone 10 mg PO BID 04/18/18 clonazePAM [Klonopin -] 0.5 mg PO BID 04/18/18 This patient is new to me today: No Emergency Visit: Yes ED Registration Date: 04/17/18 Care time: The patient presented to the Emergency Department on the above date and was hospitalized for further evaluation of their emergent condition. Critical Care patient: No - Discharge Referral Referred to [facility] Med P.C.: No
[2018-04-22 17:11] VITALS: BP 107/65; PULSE 93; TEMP 97.5
== END 2018-04-22 19:55 | disposition home or self-care (01) | DRG 460 ==
LOC: JSAMEDAYSX 10:12 → JICU 22:06 → J8W 04-19 22:57
PROVIDERS: ADMIT Orthopaedic Surgery Orthopaedic Surgery of the Spine; ATTEND Internal Medicine
PROC: 00PV0JZ Removal of Synthetic Substitute from Spinal Cord, Open Approach (ICD-10-PCS; 2018-04-17)
PROC: 0QB00ZZ Excision of Lumbar Vertebra, Open Approach (ICD-10-PCS; 2018-04-17)
PROC: 0SG10AJ Fusion of 2 or more Lumbar Vertebral Joints with Interbody Fusion Device, Posterior Approach, Anterior Column, Open Approach (ICD-10-PCS; principal; 2018-04-17 11:15)
DX: M51.26 Other intervertebral disc displacement, lumbar region (principal); M48.061 Spinal stenosis, lumbar region without neurogenic claudication; M12.9 Arthropathy, unspecified; F41.9 Anxiety disorder, unspecified; I25.10 Atherosclerotic heart disease of native coronary artery without angina pectoris; E78.5 Hyperlipidemia, unspecified; Z95.5 Presence of coronary angioplasty implant and graft; M54.9 Dorsalgia, unspecified; R11.0 Nausea
CPT/HCPCS: 36415; 80048; 80053; 83735; 84100; 85025; 85027; 86850; 86900; 86901; 88300-TC; 88304-TC; 93005; 93010; 94760; 97116-GP; 97161-GP; J0131; J1644